=== PATIENT | female | born 1955 | race Caucasian/White ===

== ENCOUNTER 2017-04-10 14:50 | Emergency (ER) | payer OTHER ==
[2017-04-10 15:36] LABS: #Basophils 0.1 thou/uL (0.0-0.2); #Eosinphils 0.2 thou/uL (0.0-0.7); #Lymphocytes 2.7 thou/uL (1.20-3.40); #Monocytes 0.7 thou/uL (0.11-0.59); #Neutrophils 5.7 thou/uL (1.40-6.50); %Basophils 0.6 % (0.0-1.0); %Eosinophils 1.8 % (0.0-10.0); %Lymphocytes 28.6 % (21.0-51.0); %Monocytes 7.4 % (0.0-10.0); Hematocrit 48.7 % (36.0-47.0); Mean Platelet Volume 6.2 fL (7.4-10.4); White Blood Cell (WBC) Count 9.3 thou/uL (4.8-10.8)
[2017-04-10 15:51] LABS: ALT (SGPT) 19 U/L (8-55); AST (SGOT) 17 U/L (5-34); Alkaline Phosphatase 84 U/L (40-150); Anion Gap 14 mmol/L (10-20); BUN (Urea Nitrogen) 18 mg/dL (9.8-20.1); Bilirubin, Total 0.4 mg/dL (0.2-1.2); CK (CPK) 45 U/L (29-168); Calc. Creatinine Clearance 0 mL/min (70-130); Calcium 9.2 mg/dL (7.8-10.44); Carbon Dioxide 25 mmol/L (23-31); Chloride 103 mmol/L (98-107); Estimated GFR-MDRD 77; Globulin 3.4 g/dL (2.4-3.5); Lipase Less than 4 U/L (8-78); Protein, Total 7.4 g/dL (6.0-8.3)
--- NOTE | 2017-04-10 15:51 | RAD ---
CHEST ONE VIEW: 04/10/17 HISTORY: Chest pain. COMPARISON: 02/03/17. FINDINGS: The cardiac silhouette is magnified by projection. Pulmonary vasculature is unremarkable. mediastinu m is midline with postoperative changes apparent. There is no confluent air space consolidation or evidence of pneumothorax. IMPRESSION: No active cardiopulmonary abnormalities are demonstrated. POS: [facility]
[2017-04-10 16:01] LABS: Troponin I Less than 0.010 ng/mL (< 0.028)
[2017-04-10] MEDS ORDERED: traMADol HCl 50 MG TAB ONE (17:09)
[2017-04-10 19:04] LABS: Troponin I 0.014 ng/mL (< 0.028)
== END 2017-04-10 19:35 | disposition home or self-care (01) ==
LOC: ERS 14:50
DX: R07.2 Precordial pain (principal); M25.511 Pain in right shoulder; J44.9 Chronic obstructive pulmonary disease, unspecified; I25.2 Old myocardial infarction; E78.5 Hyperlipidemia, unspecified; I10 Essential (primary) hypertension; E03.9 Hypothyroidism, unspecified; F32.9 Major depressive disorder, single episode, unspecified; F17.210 Nicotine dependence, cigarettes, uncomplicated; Z79.82 Long term (current) use of aspirin; Z79.899 Other long term (current) drug therapy
CPT/HCPCS: 36415; 71010; 80053; 82550; 82553; 83690; 83880; 84484; 85025; 93005

== ENCOUNTER 2017-04-12 11:37 | Outpatient (CLI) | payer OTHER ==
[2017-04-12 13:28] LABS: PTT 26.6 SEC (22.9-36.1); Prothrombin Time 12.4 SEC (12.0-14.7)
== END 2017-04-12 11:38 | disposition home or self-care (01) ==
LOC: LABBT 11:37
PROVIDERS: ATTEND Internal Medicine
DX: Z01.818 Encounter for other preprocedural examination (principal); R93.1 Abnormal findings on diagnostic imaging of heart and coronary circulation
CPT/HCPCS: 80061; 85610; 85730

== ENCOUNTER → 2017-04-13 | Day surgery (SDC) | payer OTHER ==
[2017-04-12 12:12] VITALS: BMI 31.8
[~2017-04-13] MED LIST: Diazepam 5 MG TAB ONE; Fentanyl 100 MCG/2 ML VIAL ONE; Iopamidol 370 76% 100 ML VIAL ONE; Metoprolol Tartrate 5 MG/5 ML VIAL ONE; Midazolam HCl 2 mg/2 ml Vial ONE; diphenhydrAMINE HCl 25 MG CAP ONE
== END ==
LOC: CCL 06:07
PROVIDERS: ATTEND Internal Medicine
DX: I25.10 Atherosclerotic heart disease of native coronary artery without angina pectoris (principal); I10 Essential (primary) hypertension; E78.5 Hyperlipidemia, unspecified; E11.9 Type 2 diabetes mellitus without complications; M19.90 Unspecified osteoarthritis, unspecified site; F17.200 Nicotine dependence, unspecified, uncomplicated; Z88.5 Allergy status to narcotic agent; Z88.6 Allergy status to analgesic agent; Z79.899 Other long term (current) drug therapy; Z95.1 Presence of aortocoronary bypass graft; Z98.890 Other specified postprocedural states; Z86.73 Personal history of transient ischemic attack (TIA), and cerebral infarction without residual deficits
CPT/HCPCS: 93459; 99152; C1760; C1769; J1644; J2250; J3010

== ENCOUNTER 2017-07-18 15:13 | Observation (INO) | payer OTHER ==
[2017-07-18] MEDS ORDERED: Ondansetron HCl/PF 4 MG/2 ML Vial ONE ×2 (16:24→19:21)
[2017-07-18 16:47] LABS: #Basophils 0.1 thou/uL (0.0-0.2); #Eosinphils 0.1 thou/uL (0.0-0.7); #Lymphocytes 2.3 thou/uL (1.20-3.40); #Monocytes 0.7 thou/uL (0.11-0.59); #Neutrophils 10.3 thou/uL (1.40-6.50); %Basophils 0.6 % (0.0-1.0); %Eosinophils 1.1 % (0.0-10.0); %Lymphocytes 16.9 % (21.0-51.0); %Monocytes 5.4 % (0.0-10.0); Mean Corpuscular Hemoglobin 31.9 pg (27.0-31.0); Mean Corpuscular Volume 96.9 fl (81.0-99.0); Platelet Count 330 thou/uL (130-400); RBC Distribution Width 12.5 % (11.5-14.5); Red Blood Cell (RBC) Count 4.71 mill/uL (4.20-5.40); White Blood Cell (WBC) Count 13.6 thou/uL (4.8-10.8)
[2017-07-18 17:08] LABS: ALT (SGPT) 25 U/L (8-55); AST (SGOT) 21 U/L (5-34); Alkaline Phosphatase 89 U/L (40-150); Anion Gap 13 mmol/L (10-20); BUN (Urea Nitrogen) 15 mg/dL (9.8-20.1); Bilirubin, Total 0.4 mg/dL (0.2-1.2); Calc. Creatinine Clearance 0 mL/min (70-130); Calcium 9.3 mg/dL (7.8-10.44); Carbon Dioxide 29 mmol/L (23-31); Chloride 101 mmol/L (98-107); Estimated GFR-MDRD 72; Globulin 3.1 g/dL (2.4-3.5); Glucose 102 mg/dL (80-115); Potassium 4.6 mmol/L (3.5-5.1); Protein, Total 7.1 g/dL (6.0-8.3); Sodium 138 mmol/L (136-145)
--- NOTE | 2017-07-18 18:11 | RAD ---
CHEST TWO VIEWS: History: Cough. Comparison: Chest one view, 04-10-17 FINDINGS: Lungs are clear. No pneumothorax or effusion. Cardiac silhouette and mediastinal contours are within normal limits. Focal area of scar in the right lung base. IMPRESSION: No acute intrathoracic abnormality. POS: [facility]
[2017-07-18] MEDS ORDERED: Fentanyl 100 MCG/2 ML VIAL ONE (18:20)
[2017-07-18] MEDS ORDERED: Oseltamivir 75 MG CAP PO SCH (18:30)
[2017-07-18] MEDS ORDERED: Azithromycin 500 MG in Sodium Chloride 0.9% 250 ML 250 ML IVPB SCH (18:45)
[2017-07-18 19:44] LABS: Bilirubin Negative (Negative); Blood, Urine Negative (Negative); Clarity CLEAR (Clear); Glucose, Urine (Dipstick) Negative (Negative); Leukocyte Negative (Negative); Nitrite Negative (Negative); Protein, Urine (Dipstick) Negative (Neg-Trace); Specific Gravity, Urine 1.013 (1.002-1.036); Urobilinogen 0.2 mg/dL (0.2-1.0); pH, Urine 6.5 (5.0-9.0)
[2017-07-18] MEDS ORDERED: Ondansetron ODT 4 MG TAB SL PRN (20:31)
[2017-07-18] MEDS ORDERED: Acetaminophen 325 MG TAB PO PRN ×2 (20:31→21:23)
[2017-07-18] MEDS ORDERED: Ondansetron HCl/PF 4 MG/2 ML Vial IVP PRN (20:31)
[2017-07-18 20:32] VITALS: BMI 33.8
[2017-07-18] MEDS ORDERED: Sodium Chloride 0.9% 1,000 ML IV SCH (21:30)
[2017-07-18] MEDS ORDERED: Ipratropium Bromide 2.5 ml Neb NEB PRN (21:31)
[2017-07-18] MEDS ORDERED: HYDROcodone/Acetaminophen 10/325 mg Tablet PO PRN (21:42)
[2017-07-18] MEDS ORDERED: Mirtazapine 30 MG TAB PO PRN (21:42)
[2017-07-18 22:25] LABS: Lactic Acid 2.7 mmol/L (0.5-2.2)
[2017-07-18] MEDS ORDERED: Gabapentin 400 MG CAP PO SCH (22:45)
[2017-07-18] MEDS ORDERED: Clopidogrel Bisulfate 75 MG TAB PO SCH (22:45)
[2017-07-18] MEDS ORDERED: DULoxetine 30 MG CAP PO SCH (22:45)
[2017-07-18] MEDS ORDERED: traZODone HCl 150 MG TAB PO SCH (22:45)
[2017-07-18] MEDS ORDERED: Simvastatin 40 MG TAB PO SCH (22:45)
[2017-07-18] MEDS ORDERED: Losartan 25 MG TAB PO SCH (22:45)
[2017-07-18] MEDS ORDERED: hydrALAZINE 10 MG TAB PO SCH (22:45)
[2017-07-18] MEDS ORDERED: ALPRAZolam 1 MG TAB PO SCH (22:45)
[2017-07-18] MEDS ORDERED: Amlodipine 5 MG TAB PO SCH (22:45)
[2017-07-18] MEDS: Albuterol Sulfate 1.25 MG/3 ML NEB NEB SCH (22:55)
[2017-07-19] MEDS: Levothyroxine Sodium 25 MCG TAB PO SCH (04:06)
[2017-07-19 04:29] LABS: #Basophils 0.1 thou/uL (0.0-0.2); #Eosinphils 0.2 thou/uL (0.0-0.7); #Lymphocytes 1.7 thou/uL (1.20-3.40); #Monocytes 0.6 thou/uL (0.11-0.59); #Neutrophils 5.2 thou/uL (1.40-6.50); %Basophils 0.7 % (0.0-1.0); %Eosinophils 2.3 % (0.0-10.0); %Lymphocytes 21.6 % (21.0-51.0); %Monocytes 7.9 % (0.0-10.0); %Neutrophils 67.5 % (42.0-75.0); Mean Corpuscular HGB CONC 32.3 g/dL (32.0-36.0); Mean Corpuscular Hemoglobin 31.7 pg (27.0-31.0); Mean Corpuscular Volume 98.1 fl (81.0-99.0); Mean Platelet Volume 6.2 fL (7.4-10.4); Platelet Count 258 thou/uL (130-400); RBC Distribution Width 12.4 % (11.5-14.5); White Blood Cell (WBC) Count 7.8 thou/uL (4.8-10.8)
[2017-07-19 04:40] LABS: Anion Gap 10 mmol/L (10-20); BUN (Urea Nitrogen) 10 mg/dL (9.8-20.1); Calc. Creatinine Clearance 95 mL/min (70-130); Carbon Dioxide 26 mmol/L (23-31); Chloride 108 mmol/L (98-107); Estimated GFR-MDRD 80; Glucose 97 mg/dL (80-115); Potassium 4.3 mmol/L (3.5-5.1); Sodium 140 mmol/L (136-145)
--- NOTE | 2017-07-19 06:23 | HP ---
CHIEF COMPLAINT: Flu-like symptoms for the last 10 days, fever for last 2 days. HISTORY OF PRESENT ILLNESS: She is a 62-year-old woman with history of COPD, has been feeling sick f or 2 days. Had finished a course of antibiotics and flu medicine 2 days ago and started feeling agai n feverish, nausea, vomiting, chills, night sweats, and cough. She came to the ER with chest tightne ss with cough, all the symptoms and she was hypoxic in the ER room air less than 90s, so she put was at the hospice with COPD with acute exacerbation, flu test came back negative. In the ER, vital sign s were pulse 83, blood pressure 124/65, respirations 18, temperature 99.7 and then she got nebulizer treatment x3, but her wheezing was persistent, so plan is to put in the hospital. PAST MEDICAL HISTORY: As mentioned, history of CAD, hyperlipidemia, high cholesterol, hypertension, stomach cancer, chemotherapy from 1995, knee surgery, cholecystectomy, bypass. PSYCHIATRIC HISTORY: Depression. SOCIAL HISTORY: Drinks socially every week. Currently use drugs, marijuana smoke one pack a day. FAMILY HISTORY: Noncontributory. ALLERGIES: She is allergic to CODEINE, MORPHINE causes nausea and itching and NSAIDs. CURRENT MEDICATIONS: She is taking losartan 100 mg every day, amlodipine 5 mg every day, gabapentin 800 mg every day, levothyroxine 25 daily, simvastatin 40 mg daily, trazodone 50 mg daily, Xanax 1 mg daily, aspirin 81 every day, Plavix 75 mg every day, hydralazine 10 mg. REVIEW OF SYSTEMS: Constitutional: Positive for fever. Eyes: No itching, no blurry vision. ENT: . Cardiovascular: No chest pain, no PND, or orthopnea. Respiratory: Positive for cough. Ga strointestinal: Reports nausea and vomiting. No belly, no abdominal pain. Genitourinary: Female. No hesitancy or urgency. Musculoskeletal: Myalgia. Skin: No rash. Neurological: No dizziness, no headache. Endocrine: No polydipsia. PHYSICAL EXAMINATION: GENERAL: When I examined her, she is a middle-aged woman lying in the bed, not in distress. VITAL SIGNS: Pulse 75, blood pressure 108/52, respiration rate 18, temperature 98.4, saturation 95 o n room 2 liters oxygen. HEENT: Head is atraumatic, normocephalic. Pupils are round and reactive. Extraocular muscles are i ntact. Ear, nose, and throat are normal. Tongue, mucosa dry. NECK: Supple. No JVD, no thyromegaly, no carotid bruit. Trachea midline. CHEST: Diminished breath sounds with occasional wheezing, rhonchi present. CARDIOVASCULAR: S1, S2 audible. No S3, S4. No murmur. ABDOMEN: Soft. Bowel sounds audible. No organomegaly, no guarding or rigidity. EXTREMITIES: No pedal edema. No cyanosis or clubbing. TEST [employer]MENT: Alert x3. NEUROLOGIC: No focal deficits. Cranial nerves II through XII normal. SKIN: Normal turgor. PSYCHIATRIC: Normal affect. EKG shows sinus rhythm at 75 with no ectopics, no ST or T changes. MEDICATIONS: The medicine given in the ER are Tamiflu, Zofran, Rocephin 1 gram and DuoNeb nebulizer. LABORATORY AND DIAGNOSTIC DATA: WBC 20.6, hemoglobin 15.0, hematocrit 45.6, MCV 96.9, platelets are 330. Chemistry: Sodium 138, potassium 4.6, chloride 101, carbon dioxide 29, BUN 50, creatinine 0.8, glucose 102, lactate 2.4, calcium 9.3, AST 21, ALT 25, alkaline phosphatase 89, albumin is 4, albumi n/globulin 3.1. Lipase 4. Urine shows negative. Her chest x-ray shows no acute intrathoracic abnor mality. ASSESSMENT AND PLAN: 1. Chronic obstructive pulmonary disease exacerbation with acute on chronic obstructive pulmonary di sease. Continue oxygen, DuoNeb nebulizer, IV Rocephin, Zithromax empirically. 2. History of coronary artery disease, status post bypass. Continue aspirin and Plavix. 3. Hypertension. Continue amlodipine, losartan, and hydralazine. 4. Tobacco abuse. Continue quinapril 40 mg daily. 5. Deep vein thrombosis. Lovenox.
[2017-07-19] MEDS: Albuterol Sulfate 1.25 MG/3 ML NEB NEB SCH ×3 (06:34→22:09)
[2017-07-19] MEDS: DULoxetine 30 MG CAP PO SCH ×2 (08:24→21:05)
[2017-07-19] MEDS: Gabapentin 400 MG CAP PO SCH ×3 (08:24→21:05)
[2017-07-19] MEDS: Amlodipine 5 MG TAB PO SCH ×2 (08:24→21:04)
[2017-07-19] MEDS: Azithromycin 250 MG TAB PO SCH (08:25)
[2017-07-19] MEDS: Enoxaparin Sodium 40 MG/0.4 ML SYRINGE SC SCH (08:25)
[2017-07-19] MEDS: hydrALAZINE 10 MG TAB PO SCH ×3 (08:25→21:05)
[2017-07-19] MEDS: ALPRAZolam 1 MG TAB PO SCH ×2 (08:25→21:04)
[2017-07-19] MEDS: Nicotine 14 MG PATCH TD SCH (08:36)
[2017-07-19] MEDS ORDERED: cloNIDine 0.1 MG TAB PO PRN (10:16)
[2017-07-19] MEDS ORDERED: Senokot 8.6 MG TAB PO PRN (10:16)
[2017-07-19] MEDS ORDERED: Loratadine 10 MG TAB PO PRN (10:16)
[2017-07-19] MEDS ORDERED: Ondansetron HCl/PF 4 MG/2 ML Vial IVP PRN (10:16)
[2017-07-19] MEDS ORDERED: Benzonatate 100 MG CAP PO PRN (10:16)
[2017-07-19] MEDS ORDERED: Sodium Chloride 0.65% Nasal 44 ML BOT EA NARE PRN (10:16)
[2017-07-19] MEDS ORDERED: Ondansetron ODT 4 MG TAB PO PRN (10:16)
[2017-07-19] MEDS ORDERED: Diabetic Tussin 200 MG/10 ML UDCUP PO PRN (10:16)
[2017-07-19] MEDS ORDERED: Milk Of Magnesia 30 ML UDCUP PO PRN (10:16)
[2017-07-19] MEDS ORDERED: Temazepam 15 MG CAP PO PRN (10:16)
[2017-07-19] MEDS ORDERED: Eucerin (Mineral Oil/Petrolatum,White) 30 gm Jar TOP PRN (10:16)
[2017-07-19] MEDS ORDERED: hydrALAZINE 20 MG/ML VIAL SLOW IVP PRN (10:16)
[2017-07-19] MEDS ORDERED: Artificial Tears 18 DROP/0.9 ML EA EYE PRN (10:16)
[2017-07-19] MEDS ORDERED: Chloraseptic Spray 180 ml Bottle PO PRN (10:16)
[2017-07-19] MEDS ORDERED: Loperamide HCl 2 MG CAP PO PRN (10:16)
[2017-07-19] MEDS ORDERED: Mag-Al 1200 mg/1200 mg/30 ML UDCUP PO PRN (10:16)
--- NOTE | 2017-07-19 10:49 | PDOC.PN ---
- Subjective Encounter Start Date: 07/19/17 Encounter Start Time: 07:40 -: old records requested/rev Patient seen and examined. No new complaints. No overnight events doing well - Objective Resuscitation Status: Resuscitation Status FULL:Full Resuscitation MAR Reviewed: Yes Vital Signs & Weight: Vital Signs (12 hours) Temp Pulse Resp BP BP Pulse Ox 07/19/17 08:24 98.7 F 87 18 07/19/17 07:38 98.7 F 87 18 156/64 H 93 L 07/19/17 06:07 78 16 98 07/19/17 03:59 98.2 F 80 20 123/55 L 92 L 07/19/17 02:06 108/52 L 07/19/17 01:00 96/50 L 07/19/17 00:34 97.9 F 78 18 07/18/17 23:03 94 L 07/18/17 22:55 78 18 94 L I&O: 07/18/17 07/19/17 07/20/17 06:59 06:59 06:59 Intake Total 480 400 Output Total 550 900 Balance -70 -500 Result Diagrams: 07/19/17 04:00 07/19/17 04:00 Radiology Reviewed by me: Yes EKG Reviewed by me: Yes Phys Exam - Physical Examination Constitutional: NAD HEENT: PERRLA, moist MMs, sclera anicteric Neck: no JVD, supple Respiratory: no wheezing, no rhonchi tight, reduced air entry Cardiovascular: RRR, no significant murmur, no rub Gastrointestinal: soft, non-tender, no distention, positive bowel sounds Musculoskeletal: no edema, pulses present Neurological: non-focal, normal sensation Psychiatric: normal affect, A&O x 3 Skin: no rash, normal turgor Dx/Plan (1) COPD exacerbation Code(s): J44.1 - CHRONIC OBSTRUCTIVE PULMONARY DISEASE W (ACUTE) EXACERBATION Status: Acute (2) Lactic acidosis Code(s): E87.2 - ACIDOSIS Status: Acute (3) Anxiety and depression Code(s): F41.8 - OTHER SPECIFIED ANXIETY DISORDERS Status: Chronic (4) CAD (coronary artery disease) Code(s): I25.10 - ATHSCL HEART DISEASE OF [place] CORONARY ARTERY W/O ANG PCTRS Status: Chronic (5) Dyslipidemia Code(s): E78.5 - HYPERLIPIDEMIA, UNSPECIFIED Status: Chronic (6) GERD (gastroesophageal reflux disease) Code(s): K21.9 - GASTRO-ESOPHAGEAL REFLUX DISEASE WITHOUT ESOPHAGITIS Status: Chronic (7) Hypertension Code(s): I10 - ESSENTIAL (PRIMARY) HYPERTENSION Status: Chronic (8) Hypothyroidism Code(s): E03.9 - HYPOTHYROIDISM, UNSPECIFIED Status: Chronic (9) Obesity (BMI 30.0-34.9) Code(s): E66.9 - OBESITY, UNSPECIFIED Status: Chronic - Plan cont current plan of care, continue antibiotics, respiratory therapy * continue azithromycin * continue duoneb * add dulera * dc IVF * selected home meds. * expecting dc tomorrow * medication reviewed as below * symptomatic treatment * will adjust BP meds Review of Systems - Review of Systems Constitutional: negative: fever, chills, sweats, weakness, malaise, other ENT: negative: Ear Pain, Ear Discharge, Nose Pain, Nose Discharge, Nose Congestion, Mouth Pain, Mouth Swelling, Throat Pain, Throat Swelling, Other Respiratory: Cough, Shortness of Breath. negative: Dry, Hemoptysis, SOB with Excertion, Pleuritic Pain, Sputum, Wheezing Cardiovascular: negative: chest pain, palpitations, orthopnea, paroxysmal nocturnal dyspnea, edema, light headedness, other Gastrointestinal: negative: Nausea, Vomiting, Abdominal Pain, Diarrhea, Constipation, Melena, Hematochezia, Other Genitourinary: negative: Dysuria, Frequency, Incontinence, Hematuria, Retention , Other Musculoskeletal: negative: Neck Pain, Shoulder Pain, Arm Pain, Back Pain, Hand Pain, Leg Pain, Foot Pain, Other Skin: negative: Rash, Lesions, Eduar, Bruising, Other Neurological: negative: Weakness, Numbness, Incoordination, Change in Speech, Confusion, Seizures, Other - Medications/Allergies Allergies/Adverse Reactions: Allergies Allergy/AdvReac Type Severity Reaction Status Date / Time codeine Allergy Intermediate ITCHING, Verified 04/12/17 12:10 morphine Allergy Intermediate HOT, Verified 04/12/17 12:10 NAUSEA, ITCHING ketorolac [From Toradol] Allergy Verified 04/12/17 12:10 NSAIDS (Non-Steroidal Allergy Verified 04/12/17 12:10 Anti-Inflamma Medications: Current Medications Acetaminophen (Tylenol) 650 mg PO Q4H PRN PRN Reason: Headache/Fever or Pain Hydrocodone Bitart/Acetaminophen ([place] 7.5/325) 1 tab PO Q4H PRN PRN Reason: Moderate Pain (4-6) Hydrocodone Bitart/Acetaminophen ([place] 10/325) 1 tab PO Q8H PRN PRN Reason: Severe Pain (7-10) Last Admin: 07/19/17 08:24 Dose: 1 tab Al Hydroxide/Mg Hydroxide (Maalox) 15 ml PO Q4H PRN PRN Reason: Heartburn or Indigestion Albuterol Sulfate (Albuterol Sulfate) 1.25 mg NEB [id number] [facility] Last Admin: 07/19/17 06:34 Dose: Not Given Alprazolam (Xanax) 1 mg PO BID [facility] Last Admin: 07/19/17 08:25 Dose: 1 mg Amlodipine Besylate (Norvasc) 5 mg PO BID [facility] Last Admin: 07/19/17 08:24 Dose: 5 mg Artificial Tears (Tears Naturale) 0 drop EA EYE PRN PRN PRN Reason: Dry Eyes Azithromycin (Zithromax) 250 mg PO DAILY [facility] Stop: 07/22/17 09:01 Last Admin: 07/19/17 08:25 Dose: 250 mg Benzonatate (Tessalon) 100 mg PO Q4H PRN PRN Reason: Cough Clonidine (Catapres) 0.1 mg PO Q4H PRN PRN Reason: Systolic BP > 180 Clopidogrel Bisulfate (Plavix) 75 mg PO HS [facility] Duloxetine HCl (Cymbalta) 30 mg PO BID [facility] Last Admin: 07/19/17 08:24 Dose: 30 mg Enoxaparin Sodium (Lovenox) 40 mg SC 0900 [facility] Last Admin: 07/19/17 08:25 Dose: 40 mg Famotidine (Pepcid) 20 mg PO BID [facility] Gabapentin (Neurontin) 800 mg PO TID [facility] Last Admin: 07/19/17 08:24 Dose: 800 mg Guaifenesin (Robitussin Sf) 200 mg PO Q4H PRN PRN Reason: Cough Hydralazine HCl (Apresoline) 10 mg PO TID [facility] Last Admin: 07/19/17 08:25 Dose: 10 mg Hydralazine HCl (Apresoline) 10 mg SLOW IVP Q4H PRN PRN Reason: Systolic BP > 180 Ceftriaxone Sodium 1 gm/ (Syringe) 10 mls @ 120 mls/hr SLOW IVP Q24HR@1800 [facility] Ipratropium [place] (Atrovent) 2.5 ml NEB [id number] PRN PRN Reason: SOB &/or Wheezing Levothyroxine Sodium (Synthroid) 25 mcg PO 0600 [facility] Last Admin: 07/19/17 04:06 Dose: 25 mcg Loperamide HCl (Imodium) 2 mg PO PRN PRN PRN Reason: Diarrhea/Loose Stools Loratadine (Claritin) 10 mg PO DAILYPRN PRN PRN Reason: Sinus Symptoms Losartan Potassium (Cozaar) 100 mg PO HS [facility] Magnesium Hydroxide (Milk Of Magnesium) 30 ml PO DAILYPRN PRN PRN Reason: Constipation Mineral Oil/White Petrolatum (Eucerin Cream) 0 gm TOP BIDPRN PRN PRN Reason: Dry Skin Mirtazapine (Remeron) 15 mg PO HSPRN PRN PRN Reason: Insomnia Mometasone Furoate/Formoterol Fumar (Dulera 200 Mcg/5 Mcg Inhaler) 1 puff INH BID-RT [facility] Nicotine (Nicoderm Patch) 14 mg TD Q24HR [facility] Stop: 07/21/17 09:01 Last Admin: 07/19/17 08:36 Dose: 14 mg Ondansetron HCl (Zofran Odt) 4 mg PO Q6H PRN PRN Reason: Nausea/Vomiting Ondansetron HCl (Zofran) 4 mg IVP Q6H PRN PRN Reason: Nausea/Vomiting Pantoprazole Sodium (Protonix) 40 mg PO DAILY [facility] Last Admin: 07/19/17 08:24 Dose: 40 mg Phenol (Chloraseptic [place] 180 Ml Bot) 0 ml PO PRN PRN PRN Reason: Sore Throat Senna (Senokot) 2 tab PO HSPRN PRN PRN Reason: Constipation Simvastatin (Zocor) 40 mg PO HS [facility] Sodium Chloride (Flush - Normal Saline) 10 ml IVF Q12HR [facility] Last Admin: 07/19/17 08:25 Dose: Not Given Sodium Chloride (Flush - Normal Saline) 10 ml IVF PRN PRN PRN Reason: Saline Flush Sodium Chloride ([place] Nasal [place] 0.65%) 0 ml EA NARE QIDPRN PRN PRN Reason: Nasal Congestion Temazepam (Restoril) 15 mg PO HSPRN PRN PRN Reason: Insomnia Trazodone HCl (Desyrel) 150 mg PO HS [facility]
[2017-07-19 11:51] LABS: Lactic Acid 1.7 mmol/L (0.5-2.2)
[2017-07-19] MEDS: HYDROcodone/Acetaminophen 7.5/325 mg Tablet PO PRN ×2 (14:10→18:33)
[2017-07-19] MEDS ORDERED: cefTRIAXone\\ROCEPHIN 1 GM in Syringe 10 ML SLOW IVP SCH (18:00)
[2017-07-19] MEDS: Mometasone/Formoterol 120 PUFF INHALER INH SCH (18:50)
[2017-07-19] MEDS ORDERED: Simvastatin 40 MG TAB PO SCH (21:00)
[2017-07-19] MEDS ORDERED: Clopidogrel Bisulfate 75 MG TAB PO SCH (21:00)
[2017-07-19] MEDS ORDERED: Losartan 25 MG TAB PO SCH (21:00)
[2017-07-19] MEDS ORDERED: traZODone HCl 150 MG TAB PO SCH (21:00)
[2017-07-19] MEDS: Famotidine 20 MG TAB PO SCH (21:05)
[2017-07-20] MEDS: HYDROcodone/Acetaminophen 7.5/325 mg Tablet PO PRN ×2 (02:01→08:56)
[2017-07-20] MEDS: Levothyroxine Sodium 25 MCG TAB PO SCH (05:19)
[2017-07-20] MEDS: Albuterol Sulfate 1.25 MG/3 ML NEB NEB SCH (07:02)
[2017-07-20] MEDS: Mometasone/Formoterol 120 PUFF INHALER INH SCH (07:11)
[2017-07-20 08:34] VITALS: BP 101/56; TEMP 97.4
[2017-07-20] MEDS: DULoxetine 30 MG CAP PO SCH (08:57)
[2017-07-20] MEDS: Amlodipine 5 MG TAB PO SCH (08:58)
[2017-07-20] MEDS: Azithromycin 250 MG TAB PO SCH (08:58)
[2017-07-20] MEDS: Famotidine 20 MG TAB PO SCH (08:58)
[2017-07-20] MEDS: Gabapentin 400 MG CAP PO SCH (08:58)
[2017-07-20] MEDS: Enoxaparin Sodium 40 MG/0.4 ML SYRINGE SC SCH (08:59)
[2017-07-20] MEDS: ALPRAZolam 1 MG TAB PO SCH (08:59)
[2017-07-20] MEDS: hydrALAZINE 10 MG TAB PO SCH (09:00)
[2017-07-20] MEDS: Nicotine 14 MG PATCH TD SCH (09:00)
--- NOTE | 2017-07-20 09:25 | PDOC.PN ---
- Subjective Encounter Start Date: 07/20/17 Encounter Start Time: 07:30 Patient seen and examined. No new complaints. No overnight events - Objective Resuscitation Status: Resuscitation Status FULL:Full Resuscitation MAR Reviewed: Yes Vital Signs & Weight: Vital Signs (12 hours) Temp Pulse Resp BP BP Pulse Ox 07/20/17 08:23 97.4 F L 66 18 101/56 L 96 07/20/17 07:58 98.0 F 80 12 07/20/17 07:11 80 12 07/20/17 07:05 96 07/20/17 07:02 80 12 07/20/17 05:15 98.0 F 73 18 128/60 94 L 07/20/17 02:02 73 20 133/58 L 94 L Weight Weight 168 lb I&O: 07/19/17 07/20/17 07/21/17 06:59 06:59 06:59 Intake Total 480 1951 Output Total 550 900 Balance -70 1051 Result Diagrams: 07/19/17 04:00 07/19/17 04:00 EKG Reviewed by me: Yes Phys Exam - Physical Examination Constitutional: NAD HEENT: PERRLA, moist MMs, sclera anicteric Neck: no JVD, supple Respiratory: no wheezing, no rales, no rhonchi Cardiovascular: RRR, no significant murmur, no rub Gastrointestinal: soft, non-tender, no distention, positive bowel sounds Musculoskeletal: no edema, pulses present Neurological: non-focal, normal sensation, moves all 4 limbs Psychiatric: normal affect, A&O x 3 Skin: no rash, normal turgor Dx/Plan (1) COPD exacerbation Code(s): J44.1 - CHRONIC OBSTRUCTIVE PULMONARY DISEASE W (ACUTE) EXACERBATION Status: Acute (2) Lactic acidosis Code(s): E87.2 - ACIDOSIS Status: Resolved (3) Anxiety and depression Code(s): F41.8 - OTHER SPECIFIED ANXIETY DISORDERS Status: Chronic (4) CAD (coronary artery disease) Code(s): I25.10 - ATHSCL HEART DISEASE OF [place] CORONARY ARTERY W/O ANG PCTRS Status: Chronic (5) Dyslipidemia Code(s): E78.5 - HYPERLIPIDEMIA, UNSPECIFIED Status: Chronic (6) GERD (gastroesophageal reflux disease) Code(s): K21.9 - GASTRO-ESOPHAGEAL REFLUX DISEASE WITHOUT ESOPHAGITIS Status: Chronic (7) Hypertension Code(s): I10 - ESSENTIAL (PRIMARY) HYPERTENSION Status: Chronic (8) Hypothyroidism Code(s): E03.9 - HYPOTHYROIDISM, UNSPECIFIED Status: Chronic (9) Obesity (BMI 30.0-34.9) Code(s): E66.9 - OBESITY, UNSPECIFIED Status: Chronic - Plan cont current plan of care, continue antibiotics, respiratory therapy * azithromycin, proair HFA, atrovent HFA, dulera HFA on discharge * flonase nasal spray * medication reviewed as below * symptomatic treatment. * see discharge beryly Review of Systems - Review of Systems ENT: negative: Ear Pain, Ear Discharge, Nose Pain, Nose Discharge, Nose Congestion, Mouth Pain, Mouth Swelling, Throat Pain, Throat Swelling, Other Respiratory: negative: Cough, Dry, Shortness of Breath, Hemoptysis, SOB with Excertion, Pleuritic Pain, Sputum, Wheezing Cardiovascular: negative: chest pain, palpitations, orthopnea, paroxysmal nocturnal dyspnea, edema, light headedness, other Gastrointestinal: negative: Nausea, Vomiting, Abdominal Pain, Diarrhea, Constipation, Melena, Hematochezia, Other Genitourinary: negative: Dysuria, Frequency, Incontinence, Hematuria, Retention , Other Musculoskeletal: negative: Neck Pain, Shoulder Pain, Arm Pain, Back Pain, Hand Pain, Leg Pain, Foot Pain, Other Skin: negative: Rash, Lesions, Eduar, Bruising, Other - Medications/Allergies Allergies/Adverse Reactions: Allergies Allergy/AdvReac Type Severity Reaction Status Date / Time codeine Allergy Intermediate ITCHING, Verified 04/12/17 12:10 morphine Allergy Intermediate HOT, Verified 04/12/17 12:10 NAUSEA, ITCHING ketorolac [From Toradol] Allergy Verified 04/12/17 12:10 NSAIDS (Non-Steroidal Allergy Verified 04/12/17 12:10 Anti-Inflamma Medications: Current Medications Acetaminophen (Tylenol) 650 mg PO Q4H PRN PRN Reason: Headache/Fever or Pain Hydrocodone Bitart/Acetaminophen ([place] 7.5/325) 1 tab PO Q4H PRN PRN Reason: Moderate Pain (4-6) Last Admin: 07/20/17 08:56 Dose: 1 tab Hydrocodone Bitart/Acetaminophen ([place] 10/325) 1 tab PO Q8H PRN PRN Reason: Severe Pain (7-10) Last Admin: 07/19/17 08:24 Dose: 1 tab Al Hydroxide/Mg Hydroxide (Maalox) 15 ml PO Q4H PRN PRN Reason: Heartburn or Indigestion Albuterol Sulfate (Albuterol Sulfate) 1.25 mg NEB Q0PK-AD [facility] Last Admin: 07/20/17 07:02 Dose: 1.25 mg Alprazolam (Xanax) 1 mg PO BID [facility] Last Admin: 07/20/17 08:59 Dose: 1 mg Amlodipine Besylate (Norvasc) 5 mg PO BID [facility] Last Admin: 07/20/17 08:58 Dose: Not Given Artificial Tears (Tears Naturale) 0 drop EA EYE PRN PRN PRN Reason: Dry Eyes Azithromycin (Zithromax) 250 mg PO DAILY [facility] Stop: 07/22/17 09:01 Last Admin: 07/20/17 08:58 Dose: 250 mg Benzonatate (Tessalon) 100 mg PO Q4H PRN PRN Reason: Cough Clonidine (Catapres) 0.1 mg PO Q4H PRN PRN Reason: Systolic BP > 180 Clopidogrel Bisulfate (Plavix) 75 mg PO HS [facility] Last Admin: 07/19/17 21:05 Dose: 75 mg Duloxetine HCl (Cymbalta) 30 mg PO BID [facility] Last Admin: 07/20/17 08:57 Dose: 30 mg Enoxaparin Sodium (Lovenox) 40 mg SC 0900 [facility] Last Admin: 07/20/17 08:59 Dose: 40 mg Famotidine (Pepcid) 20 mg PO BID [facility] Last Admin: 07/20/17 08:58 Dose: 20 mg Gabapentin (Neurontin) 800 mg PO TID [facility] Last Admin: 07/20/17 08:58 Dose: 800 mg Guaifenesin (Robitussin Sf) 200 mg PO Q4H PRN PRN Reason: Cough Hydralazine HCl (Apresoline) 10 mg PO TID [facility] Last Admin: 07/20/17 09:00 Dose: Not Given Hydralazine HCl (Apresoline) 10 mg SLOW IVP Q4H PRN PRN Reason: Systolic BP > 180 Ceftriaxone Sodium 1 gm/ (Syringe) 10 mls @ 120 mls/hr SLOW IVP Q24HR@1800 [facility] Last Admin: 07/19/17 18:32 Dose: 10 mls Ipratropium [place] (Atrovent) 2.5 ml NEB [id number] PRN PRN Reason: SOB &/or Wheezing Levothyroxine Sodium (Synthroid) 25 mcg PO 0600 [facility] Last Admin: 07/20/17 05:19 Dose: 25 mcg Loperamide HCl (Imodium) 2 mg PO PRN PRN PRN Reason: Diarrhea/Loose Stools Loratadine (Claritin) 10 mg PO DAILYPRN PRN PRN Reason: Sinus Symptoms Losartan Potassium (Cozaar) 100 mg PO HS [facility] Last Admin: 07/19/17 21:07 Dose: 100 mg Magnesium Hydroxide (Milk Of Magnesium) 30 ml PO DAILYPRN PRN PRN Reason: Constipation Last Admin: 07/19/17 18:37 Dose: 30 ml Mineral Oil/White Petrolatum (Eucerin Cream) 0 gm TOP BIDPRN PRN PRN Reason: Dry Skin Mirtazapine (Remeron) 15 mg PO HSPRN PRN PRN Reason: Insomnia Mometasone Furoate/Formoterol Fumar (Dulera 200 Mcg/5 Mcg Inhaler) 1 puff INH BID-RT [facility] Last Admin: 07/20/17 07:11 Dose: 1 puff Nicotine (Nicoderm Patch) 14 mg TD Q24HR [facility] Stop: 07/21/17 09:01 Last Admin: 07/20/17 09:00 Dose: Not Given Ondansetron HCl (Zofran Odt) 4 mg PO Q6H PRN PRN Reason: Nausea/Vomiting Last Admin: 07/20/17 08:56 Dose: 4 mg Ondansetron HCl (Zofran) 4 mg IVP Q6H PRN PRN Reason: Nausea/Vomiting Pantoprazole Sodium (Protonix) 40 mg PO DAILY [facility] Last Admin: 07/20/17 08:58 Dose: 40 mg Phenol (Chloraseptic [place] 180 Ml Bot) 0 ml PO PRN PRN PRN Reason: Sore Throat Senna (Senokot) 2 tab PO HSPRN PRN PRN Reason: Constipation Last Admin: 07/20/17 02:02 Dose: 2 tab Simvastatin (Zocor) 40 mg PO [facility] Last Admin: 07/19/17 21:06 Dose: 40 mg Sodium Chloride (Flush - Normal Saline) 10 ml IVF Q12HR [facility] Last Admin: 07/20/17 09:00 Dose: 10 ml Sodium Chloride (Flush - Normal Saline) 10 ml IVF PRN PRN PRN Reason: Saline Flush Sodium Chloride ([place] Nasal [place] 0.65%) 0 ml EA NARE QIDPRN PRN PRN Reason: Nasal Congestion Temazepam (Restoril) 15 mg PO HSPRN PRN PRN Reason: Insomnia Trazodone HCl (Desyrel) 150 mg PO [facility] Last Admin: 07/19/17 21:06 Dose: 150 mg
--- NOTE | 2017-07-20 11:22 | DIS ---
DATE OF ADMISSION: 07/18/2017 DATE OF DISCHARGE: 07/20/2017 PRIMARY CARE PHYSICIAN: Dr. Nicolás Chew. DISCHARGE DISPOSITION: Home. PRIMARY DISCHARGE DIAGNOSES: Chronic obstructive pulmonary disease exacerbation; and lactic acidosis , improved. SECONDARY DISCHARGE DIAGNOSES: Obesity with BMI 33, hypothyroidism, hypertension, gastroesophageal r eflux disease, dyslipidemia, coronary artery disease, anxiety and depression, chronic obstructive pul monary disease. PRIMARY PROCEDURE/OPERATION: None. RADIOLOGICAL INVESTIGATION: Chest x-ray was normal. SIGNIFICANT LABORATORY DATA: WBC 7.8, hemoglobin 13.0, platelets 258. Sodium 140. Lactic acid 1.7, creatinine 0.74. LFTs normal, lipase 4. Urinalysis normal. Influenza screen negative. Urine cult ure negative. DISCHARGE MEDICATIONS: ProAir HFA 2 puffs q.6 hourly p.r.n., Xanax 1 mg p.o. b.i.d., amlodipine 5 mg p.o. b.i.d., azithromycin 250 mg p.o. daily for 5 days, Plavix 75 mg p.o. at bedtime, Cymbalta 30 mg p.o. b.i.d., Flonase nasal spray b.i.d., gabapentin 800 mg p.o. t.i.d., hydralazine 10 mg p.o. t.i.d ., [place] 10 one tablet q.8 hourly p.r.n., Atrovent HFA 2 puffs q.6 hourly, Synthroid 25 mcg p.o. jamie y, Losartan 100 mg p.o. at bedtime, Remeron 15 mg p.o. at bedtime p.r.n., Dulera 1 puff inhalation b. i.d., Protonix 40 mg p.o. daily, Zocor 40 mg p.o. at bedtime, trazodone 150 mg p.o. at bedtime. CONTRAINDICATIONS: None. CODE STATUS: FULL CODE. INPATIENT CONSULTANTS: None. ALLERGIES: CODEINE, MORPHINE, TORADOL, NSAIDS. DISCHARGE PLAN: Post hospital, the patient will follow up with primary care physician in 1 week. HOSPITAL COURSE: The patient is a 62-year-old female with above-mentioned medical problems. She was admitted by Dr. Fernando Quiros. Please see his H and P for further details. The patient was having increasing shortness of breath, nasal congestion, and cough. She was diagnosed with COPD flareup. H er chest x-ray was normal. Her influenza screen was negative. She was treated with DuoNeb, Dulera, and empiric antibiotic therapy with Rocephin and azithromycin. On discharge, we changed to albuterol , Atrovent HFA as well as Dulera inhaler, and Z-Curly was prescribed. The patient will resume all her previous medications. She has allergic rhinitis and that is why we added Flonase nasal spray as well . The patient is on room air. She is afebrile and hemodynamically stable, tolerating p.o. well and amb ulatory. At this point, patient is medically stable for discharge today. The patient is seen and ex amined at bedside today. Please see my progress note from today for further details.
== END 2017-07-20 11:18 | disposition home or self-care (01) ==
LOC: ERS 15:13 → 2SW 20:18
PROVIDERS: ADMIT Family Medicine; ATTEND Family Medicine
DX: J44.1 Chronic obstructive pulmonary disease with (acute) exacerbation (principal); E87.2 Acidosis; E03.9 Hypothyroidism, unspecified; E78.00 Pure hypercholesterolemia, unspecified; E78.5 Hyperlipidemia, unspecified; I10 Essential (primary) hypertension; I25.10 Atherosclerotic heart disease of native coronary artery without angina pectoris; I25.2 Old myocardial infarction; K21.9 Gastro-esophageal reflux disease without esophagitis; F17.210 Nicotine dependence, cigarettes, uncomplicated; F41.8 Other specified anxiety disorders; E66.9 Obesity, unspecified; Z68.33 Body mass index [BMI] 33.0-33.9, adult; Z85.028 Personal history of other malignant neoplasm of stomach; Z92.21 Personal history of antineoplastic chemotherapy; Z85.01 Personal history of malignant neoplasm of esophagus; Z86.73 Personal history of transient ischemic attack (TIA), and cerebral infarction without residual deficits; Z79.82 Long term (current) use of aspirin; Z79.02 Long term (current) use of antithrombotics/antiplatelets; Z79.899 Other long term (current) drug therapy; Z88.5 Allergy status to narcotic agent; Z88.8 Allergy status to other drugs, medicaments and biological substances; Z95.1 Presence of aortocoronary bypass graft; Z90.49 Acquired absence of other specified parts of digestive tract; Z90.3 Acquired absence of stomach [part of]; Z98.890 Other specified postprocedural states
CPT/HCPCS: 36415; 71046; 80048; 80053; 81003; 83605; 83690; 85025; 87086; 93005; 94640; 96361; 96365; 96366; 96372; 96375; 96376; A4216; G0378; J0456; J0696; J1650; J2405; J3010; J3370; J7050; J7620; Q0162

== ENCOUNTER 2017-09-16 19:29 | Observation (INO) | payer OTHER ==
[~2017-09-16 19:29] MED LIST changes: -Diazepam 5 MG TAB ONE; -Fentanyl 100 MCG/2 ML VIAL ONE; +ISOVUE-370 76%-LOCM 1 ML ONE; -Iopamidol 370 76% 100 ML VIAL ONE; -Metoprolol Tartrate 5 MG/5 ML VIAL ONE; -Midazolam HCl 2 mg/2 ml Vial ONE; -diphenhydrAMINE HCl 25 MG CAP ONE
[2017-09-16 20:19] LABS: #Basophils 0.1 thou/uL (0.0-0.2); #Eosinphils 0.2 thou/uL (0.0-0.7); #Lymphocytes 2.2 thou/uL (1.20-3.40); #Monocytes 0.8 thou/uL (0.11-0.59); #Neutrophils 7.1 thou/uL (1.40-6.50); %Basophils 0.7 % (0.0-1.0); %Eosinophils 1.7 % (0.0-10.0); %Lymphocytes 21.3 % (21.0-51.0); %Monocytes 7.3 % (0.0-10.0); %Neutrophils 69.1 % (42.0-75.0); Hemoglobin 14.3 g/dL (12.0-16.0); Mean Corpuscular HGB CONC 32.6 g/dL (32.0-36.0); Mean Corpuscular Hemoglobin 31.9 pg (27.0-31.0); Mean Corpuscular Volume 97.8 fl (81.0-99.0); Mean Platelet Volume 6.6 fL (7.4-10.4); Platelet Count 322 thou/uL (130-400); RBC Distribution Width 12.6 % (11.5-14.5); Red Blood Cell (RBC) Count 4.48 mill/uL (4.20-5.40); White Blood Cell (WBC) Count 10.3 thou/uL (4.8-10.8)
[2017-09-16 20:28] LABS: INR-International Normal Ratio 0.9; Prothrombin Time 12.7 SEC (12.0-14.7)
[2017-09-16 20:34] LABS: ALT (SGPT) 59 U/L (8-55); AST (SGOT) 37 U/L (5-34); Albumin 4.3 g/dL (3.4-4.8); Alkaline Phosphatase 88 U/L (40-150); Anion Gap 13 mmol/L (10-20); BUN (Urea Nitrogen) 17 mg/dL (9.8-20.1); Bilirubin, Total 0.5 mg/dL (0.2-1.2); CK (CPK) 81 U/L (29-168); Calc. Creatinine Clearance 0 mL/min (70-130); Calcium 9.4 mg/dL (7.8-10.44); Carbon Dioxide 27 mmol/L (23-31); Chloride 101 mmol/L (98-107); Estimated GFR-MDRD 67; Globulin 3.1 g/dL (2.4-3.5); Glucose 85 mg/dL (80-115); Lipase 10 U/L (8-78); Potassium 4.3 mmol/L (3.5-5.1); Protein, Total 7.4 g/dL (6.0-8.3); Sodium 137 mmol/L (136-145)
[2017-09-16 20:37] LABS: CKMB 1.8 ng/mL (0-6.6); Troponin I Less than 0.010 ng/mL (< 0.028)
[2017-09-16 20:37] LABS: Bilirubin Negative (Negative); Blood, Urine Negative (Negative); Clarity CLEAR (Clear); Glucose, Urine (Dipstick) Negative (Negative); Leukocyte Negative (Negative); Nitrite Negative (Negative); Protein, Urine (Dipstick) Negative (Neg-Trace); Specific Gravity, Urine 1.006 (1.002-1.036); Urobilinogen 0.2 mg/dL (0.2-1.0); pH, Urine 6.5 (5.0-9.0)
[2017-09-16] MEDS ORDERED: Acetaminophen 500 MG TAB ONE (21:24)
[2017-09-16] MEDS ORDERED: Ondansetron HCl/PF 4 MG/2 ML Vial ONE (21:30)
--- NOTE | 2017-09-16 22:08 | CT ---
CT HEAD WITHOUT CONTRAST: 09/16/17 Multiple axial tomograms obtained through the head without IV enhancement. HISTORY: Confusion. Mental status change. Comparison made to prior head CT dated 02/03/17. There are two areas of low attenuation in the peripheral cortex of the right cerebellum which are sta ble from the prior exam. There is no evidence of intracranial hemorrhage, mass or infarct. No interva l change noted. IMPRESSION: No acute findings. POS: [facility]
--- NOTE | 2017-09-16 23:39 | CT ---
CT ABDOMEN AND PELVIS WITH CONTRAST: 09/16/17 Multiple axial tomograms obtained through the abdomen and pelvis with IV enhancement. HISTORY: Abdominal pain. Nausea. Lung bases appear clear of infiltrate. Liver shows diffuse hypodensity consistent with fatty infiltra tion. Spleen and pancreas unremarkable. Patient is post cholecystectomy. The 1.7 cm left adrenal mass is again seen. this is stable in appearance when compared to exam of 01/02 02/18. The stomach is distended and filled with ingested material. The kidneys are unremarkable. There is no evidence of hydronephrosis. Small bowel loops unremarkable. Aorta shows atherosclerotic change but normal caliber. The uterus and adnexa appear unremarkable. IMPRESSION: 1. Left adrenal mass is stable. 2. Fatty infiltration of the liver is again noted and is similar to the prior exam. 3. No evidence of acute process identified. POS: [facility]
[2017-09-17] MEDS ORDERED: Ondansetron HCl/PF 4 MG/2 ML Vial IVP PRN ×2 (01:23→10:03)
[2017-09-17] MEDS ORDERED: Ondansetron ODT 4 MG TAB SL PRN (01:23)
[2017-09-17] MEDS ORDERED: Acetaminophen 325 MG TAB PO PRN ×2 (01:23→10:03)
[2017-09-17 01:44] VITALS: BMI 32.8
[2017-09-17] MEDS ORDERED: HYDROcodone/Acetaminophen 10/325 mg Tablet PO PRN ×2 (10:03→10:46)
[2017-09-17] MEDS ORDERED: HYDROcodone/Acetaminophen 5/325 mg Tablet PO PRN (10:03)
[2017-09-17] MEDS ORDERED: Ondansetron ODT 4 MG TAB PO PRN (10:03)
[2017-09-17] MEDS ORDERED: Enoxaparin Sodium 40 MG/0.4 ML SYRINGE SC SCH (10:15)
[2017-09-17] MEDS ORDERED: PROVENTIL INHALER 6.7 G (200 INHALATIONS) INH PRN (10:46)
[2017-09-17] MEDS ORDERED: Mirtazapine 15 MG TAB PO PRN (10:46)
[2017-09-17 10:56] LABS: Cardiac Risk 5.2 (Less than 4.5)
[2017-09-17] MEDS ORDERED: DULoxetine 30 MG CAP PO SCH ×2 (11:00→21:00)
[2017-09-17] MEDS ORDERED: Fluticasone Propionate Nasal Spray 16 gm Bottle NASAL SCH (11:00)
[2017-09-17] MEDS ORDERED: Amlodipine 5 MG TAB PO SCH ×2 (11:00→21:00)
[2017-09-17] MEDS: Ipratropium Oral Inhaler (200 INHALATIONS) INH SCH ×3 (12:42→18:29)
[2017-09-17] MEDS: Mometasone/Formoterol 120 PUFF INHALER INH SCH ×2 (12:42→18:27)
--- NOTE | 2017-09-17 13:28 | ULT ---
CAROTID DOPPLER: INDICATIONS: TIA. TECHNIQUE: Ultrasound and Doppler studies performed of the extracranial carotid arteries. Color Doppler with sp ectral analysis and velocity recordings obtained. FINDINGS: Ultrasound imaging shows moderate echogenic plaque at the bulbs and proximal ICAs. Velocity recordings are upper normal in the left proximal ICA. The systolic velocity is recorded at 120 cm per second and the diastolic velocity is recorded at 39 cm per second. Both these velocities indicate stenosis, which is nearing hemodynamic significance. The right ICA velocity is recorded at 106 cm per second, with the diastolic recorded at 34 cm per sec ond. Significant stenosis incidentally noted in both external carotid arteries. Vertebral body arteries show antegrade flow. IMPRESSION: 1. Moderate plaque seen bilaterally. 2. Velocities in the left proximal internal carotid artery are nearing hemodynamic significance, as described above, which would indicate stenosis near 50%. Consider CT angio neck for more accurate as sessment. POS: [facility]
--- NOTE | 2017-09-17 13:49 | CON ---
DATE OF CONSULTATION: 09/17/2017 CHIEF COMPLAINT: Dizziness. HISTORY OF PRESENT ILLNESS: Patient did not report any specific neurological history. I am not sure why, but she herself stated to me that she did not think she was having any stroke-like symptoms and she has had a prior stroke. She felt had a blood spot in her right eye and told her friend and that redness is gone and she has some difficulties with dizziness, swallowing and according to the ER physician's note, she was more confused than usual per her family and she had generalized weakness and no specific stroke-like symptoms were described even in the chart. PAST MEDICAL HISTORY: Patient has had a prior history of CVA, stomach cancer treated with surgery and chemo, facial malignancy and TIAs in the past with swallowing or speech deficits, ruptured low disks in her back, and hypothyroidism. PAST SURGICAL HISTORY: Stomach surgery due to cancer, intestinal surgery due to cancer, appendectomy, coronary artery bypass graft for 3 vessels in 2002, cholecystectomy, right knee surgery and then she also has history of right knee surgery. SOCIAL HISTORY: She uses marijuana, drinks socially and smokes one pack a day. FAMILY HISTORY: Positive for stroke in few members of the family on the paternal side. ALLERGIES: She is allergic to CODEINE, MORPHINE, NSAIDS and TORADOL. MEDICATIONS: She takes losartan at home along with levothyroxine, mirtazapine, simvastatin, Dulera, pantoprazole, gabapentin, trazodone, duloxetine and Xanax. REVIEW OF SYSTEMS: Pulmonary: Normal. Cardiac: Normal. Gastrointestinal: Positive for sensation of bloating and nausea. Dermatologic: Normal. Neurological: Positive for feeling somewhat dizzy, which was transient. Endocrine System: Negative except for thyroid issues. Hematological: Normal. LABORATORY RESULTS: White count 10.3, hemoglobin 14.3, hematocrit 43.9, platelets 322. Chemistry: Sodium 137, potassium 4.3, carbon dioxide 27, chloride 101, BUN 17, creatinine 0.86, AST 37, ALT 59, alkaline phosphatase 88, triglycerides 243, cholesterol 156, LDL 77, HDL 30 and UA is negative. Coagulation normal and her CT of the head was negative except for two areas of low attenuation with peripheral cortex of the right cerebellum, which are stable from prior exam. No evidence of intracranial hemorrhage, mass or infarct and carotid duplex study reports are pending. PHYSICAL EXAMINATION: VITAL SIGNS: Her blood pressure 158/97, temperature is 98.6, O2 sats 92, pulse rate of 90. GENERAL APPEARANCE: Well-built, well-nourished lady. CHEST: Clear, vesicular breathing. CARDIOVASCULAR: S1, S2 heard. ABDOMEN: Slightly overweight, but no organomegaly noted. No tenderness. NEUROLOGICAL: Higher intellectual functions are normal. Cranial nerves II-XII normal with normal extraocular movements. No facial asymmetry noted. Normal strength of facial muscles bilaterally. Normal sensation of face bilaterally. Tongue midline, no atrophy noted. Motor examination: Bulk normal, tone normal , strength 5/5 throughout in upper and lower extremities in iliopsoas, hamstrings, quadriceps, ankle dorsiflexion, plantar flexion, deltoid, biceps, triceps, wrist extension/flexion, finger extension and flexion. Sensory and deep tendon reflexes 2+ throughout in upper and lower extremities and sensory exam, normal touch, pinprick, proprioception, vibration and temperature. Cerebellar: Normal heel to wagner. Gait not tested. IMPRESSION: Patient is a 62-year-old lady with prior history of transient ischemic attacks and cerebrovascular accident and also coronary artery disease and she is also hypertensive and uses marijuana and her examination shows normal neurological examination. Although her symptoms are not consistent with stroke, there is an ER physician note that states that the patient has being a bit confused and reported stroke-like symptoms although there were nonspecific. At this time, her CT is also negative, does not show any specific infarct; however, because of this vague history and unclear of history at presentation, I would like to go ahead and obtain an MRI of the brain. Please continue Plavix once daily for the stroke prophylaxis. She is reported to me she does take her Plavix on a daily basis. RECOMMENDATIONS 1. MRI, MRA brain. 2. I will follow up patient with you. 3. Do not think this is acute CVA. LAVELLED
[2017-09-17] MEDS ORDERED: hydrALAZINE 10 MG TAB PO SCH (15:00)
[2017-09-17] MEDS ORDERED: Gabapentin 400 MG CAP PO SCH (15:00)
--- NOTE | 2017-09-17 15:47 | MRI ---
NONCONTRAST ENHANCED MRI IMAGES BRAIN: HISTORY: A 62-year-old female with a history of acute ischemia versus CVA. FINDINGS: Multiplanar, multisequence noncontrast-enhanced MRI images of brain obtained. Comparison is made to previous exam from 12/14/11. Images demonstrate old areas of stroke in the right vanessa. This has not significantly changed since t he previous comparison MRI. Some deep white matter ischemic changes are present. Numerous areas of subcortical white matter lesions seen, again unchanged and likely chronic. No evidence of areas of d iffusion restriction are seen to suggest acute strokes or masses. Normal flow voids are seen in the major intracranial vessels. The patient has had previous bilateral cataract surgeries. IMPRESSION: Old areas of deep white matter ischemic changes as well as right cerebellar areas of infarction. No acute intracranial abnormalities or significant interval changes seen. POS: [facility]
--- NOTE | 2017-09-17 15:49 | MRI ---
[place] [facility] [place] MRA 09/17/17 HISTORY: TIAs. Noncontrast enhanced vie[place] of [place] MRA is performed. Images demonstrate normal flow seen in the right and left internal carotid arteries in the visualized portions. Normal flow is seen in the right and left MCA and TAMIKO vessels. There is also normal flow s een in the right and left posterior cerebral arteries. They patient has a hypoplastic right vertebral artery. The left vertebral artery is patent. IMPRESSION: No significant evidence of intracranial occlusions. The patient does appear to have a hypoplastic rig ht vertebral artery distally. POS: [facility]
[2017-09-17 16:20] VITALS: BP 139/65; TEMP 98.2
[2017-09-17] MEDS ORDERED: traZODone HCl 150 MG TAB PO SCH (21:00)
[2017-09-17] MEDS ORDERED: Clopidogrel Bisulfate 75 MG TAB PO SCH (21:00)
[2017-09-17] MEDS ORDERED: Losartan 25 MG TAB PO SCH (21:00)
[2017-09-17] MEDS ORDERED: Simvastatin 40 MG TAB PO SCH (21:00)
[2017-09-17] MEDS ORDERED: ALPRAZolam 1 MG TAB PO SCH (21:00)
[2017-09-18] MEDS ORDERED: Levothyroxine Sodium 25 MCG TAB PO SCH (06:00)
[2017-09-18] MEDS ORDERED: Enoxaparin Sodium 40 MG/0.4 ML SYRINGE SC SCH (09:00)
--- NOTE | 2017-09-18 15:58 | HP ---
DATE OF ADMISSION: 09/18/2017 PRIMARY CARE PHYSICIAN: Dr. Nicolás Chew. TIME OF SERVICE: 0900. CHIEF COMPLAINT: Weakness. HISTORY OF PRESENT ILLNESS: Ms. Vasquez is a pleasant 62-year-old white female with history of CVA a nd TIAs in the past, coronary artery disease status post heart attack x2, hyperlipidemia and hyperten loren, and esophageal cancer and stomach cancer in 1995 status post partial gastrectomy and small gricelda l resection. The patient felt 3 days prior to admission that she was kind of disconnected from herself and felt th at she may have had a TIA. She was associating that with a blood spot that appeared in her right eye medially but has since resolved. She went to her primary care doctor for followup of chronic cough, she has had for the last month or so and told him that she felt like she had a TIA, she complains of difficulty swallowing above her baseline she has from her previous strokes and was subsequently sent to the Emergency Department for evaluation. There workup was negative, and based on the history, we were called for further admission. The patient was accepted by the bricklayer tender and hold over for admission for this morning. On my arrival, she is feeling back to baseline. She denies any chest pain or shortness of breath. N o nausea or vomiting. No diarrhea or constipation. No other current complaints. PAST MEDICAL HISTORY: 1. Cerebrovascular disease, status post TIAs and CVA x2. 2. Coronary artery disease with history of TN x2. 3. Hyperlipidemia. 4. Hypertension. 5. Esophageal cancer. 6. Stomach cancer. 7. Lumbar disk disease. PAST SURGICAL HISTORY: 1. Partial gastrectomy with a proximal small bowel resection. 2. Appendectomy remotely. 3. CABG x3 vessels in 2002. 4. Cholecystectomy. 5. Right knee total knee arthroplasty. HOME MEDICATIONS: 1. Losartan 100 mg p.o. daily. 2. Amlodipine 5 mg daily. 3. Mirtazapine 30 mg p.o. at bedtime. 4. Zocor 40 mg p.o. at bedtime. 5. Dulera 200/5 one puff b.i.d. 6. Atrovent HFA q.i.d. 7. Protonix 40 mg daily. 8. Gabapentin 100 mg p.o. t.i.d. 9. Trazodone 150 mg p.o. daily. 10. Duloxetine 30 mg p.o. daily. 11. Xanax 1 mg p.o. b.i.d. 12. Plavix 75 mg daily. ALLERGIES: CODEINE, MORPHINE, NSAIDS and TORADOL. FAMILY HISTORY: Negative for clotting or bleeding disorder. No immune dysfunction. SOCIAL HISTORY: Negative for habits x3. She did smoke at one point, but has not for many years. He r daughter lives nearby and keeps an eye on her medical issues. REVIEW OF SYSTEMS: A 10-point review of systems was performed and is negative for all systems except as stated per HPI. PHYSICAL EXAMINATION: VITAL SIGNS: Temperature 98.0, pulse 80, blood pressure 125/56, respiratory 18, satting at 94% on 2 liters. On presentation in the ER, temperature is 97.9, pulse 92, and blood pressure 138/73. GENERAL: She is awake. She is alert. She is oriented x3. She is a well-developed, well-nourished, obese white female, who is in no acute distress. HEENT: Normocephalic, atraumatic. Pupils equal, reactive bilaterally. She has a left facial droop. Mucous membranes are moist. She has no visible lesions or thrush. NECK: Supple without lymphadenopathy, JVD, or thyromegaly. She has normal carotid upstrokes. I do not appreciate bruit. LUNGS: Clear to auscultation bilaterally anteriorly. Posteriorly, she has some faint bibasilar crac kles. These seem to clear with deep inspiration. CARDIOVASCULAR: She has a regular rhythm with normal rate. Normal S1 and S2. No S3 or S4. No florentino ble murmurs. ABDOMEN: Obese, it is nontender, nondistended. She has no hepatosplenomegaly and no rebound, rigidi ty or guarding. EXTREMITIES: Showed no cyanosis, no clubbing with trace pedal edema. SKIN: Warm, moist, and well perfused. She has no rashes or lesions. NEUROLOGIC: She has a residual left-sided facial droop and slurring of her speech. She has a normal speech pattern. Arms and legs 5/5 strength in all 4 of her extremities. MUSCULOSKELETAL: Normal to inspection. The large joints are uninflamed. She has no palpable effusi ons. LABORATORY DATA: Sodium is 137, potassium 4.3, chloride 107, bicarb 27, BUN 17, creatinine 0.86, bobbi cium 9.4, glucose of 85. Her liver functions are normal with AST of 37, ALT slightly elevated at 59. CBC showed a white count of 10.3, hemoglobin 14.3, hematocrit 42.9 and platelet count was 378,000 a nd normal differential. Her ammonia was normal at 24. Lactic acid 1.6. INR 0.9. CK-MB normal at 1 .8, troponin I is less than 0.010. Her urinalysis was within normal limits. Brain CT showed no acute disease. ASSESSMENT AND PLAN: 1. Possible transient ischemic attack. We will get a fasting lipid profile. We will ask the Neurol alexandrarena to evaluate. She has had no arrhythmias overnight. She is currently back to her baseline. I wi ll go and check her carotid ultrasound given her history and make sure there are no significant lesio ns. We will hold off any MRI or MRA at this point until she is seen by Neurology. 2. Dysphagia: We will have Speech Therapy to see her. She has been doing well per nurses. Should not be any issues. 3. History of coronary artery disease without symptoms. 4. Hyperlipidemia. 5. Hypertension. We will continue medications. 6. History of esophageal cancer/stomach cancer in 1995. 7. Gastroesophageal reflux disease, on Protonix. 8. Chronic back pain, on gabapentin which will continue. We will place the patient was placed on observation, watch through the day. We will get Neurology's input and likely home this afternoon.
== END 2017-09-17 18:05 | disposition home or self-care (01) ==
LOC: ERS 19:29 → 2SE 23:50
PROVIDERS: ADMIT Internal Medicine; ATTEND Internal Medicine
DX: R53.1 Weakness (principal); I25.10 Atherosclerotic heart disease of native coronary artery without angina pectoris; I25.2 Old myocardial infarction; E78.5 Hyperlipidemia, unspecified; I10 Essential (primary) hypertension; R05 Cough; K21.9 Gastro-esophageal reflux disease without esophagitis; M54.9 Dorsalgia, unspecified; G89.29 Other chronic pain; I69.328 Other speech and language deficits following cerebral infarction; I69.391 Dysphagia following cerebral infarction; R13.10 Dysphagia, unspecified; F12.90 Cannabis use, unspecified, uncomplicated; F17.210 Nicotine dependence, cigarettes, uncomplicated; Z79.51 Long term (current) use of inhaled steroids; Z79.02 Long term (current) use of antithrombotics/antiplatelets; Z79.899 Other long term (current) drug therapy; Z88.5 Allergy status to narcotic agent; Z88.6 Allergy status to analgesic agent; Z95.1 Presence of aortocoronary bypass graft; Z96.651 Presence of right artificial knee joint; Z90.3 Acquired absence of stomach [part of]; Z90.49 Acquired absence of other specified parts of digestive tract; Z92.21 Personal history of antineoplastic chemotherapy; Z85.01 Personal history of malignant neoplasm of esophagus; Z85.028 Personal history of other malignant neoplasm of stomach
CPT/HCPCS: 36415; 70450; 70544; 70551; 74177; 80053; 80061; 81003; 82140; 82553; 83605; 83690; 84484; 85025; 85610; 85730; 87086; 93880; 96361; 96372; 96374; G0378; G8978-GP-CH; G8979-GP-CH; G8980-GP-CH; G8987-GO-CI; G8988-GO-CI; G8989-GO-CI; J1650; J2405

== ENCOUNTER 2018-02-12 14:29 | Observation (INO) | payer OTHER ==
--- NOTE | 2018-02-12 15:59 | CT ---
CT BRAIN WITHOUT CONTRAST: HISTORY: Left-sided weakness. FINDINGS: Comparison is made with the exam of 09/16/17. Changes of chronic small-vessel ischemic disease are again seen. The ventricular size is stable and the basilar cisterns patent. Old infarct in the right cerebellar hemisphere is again seen. No evide nce of acute infarct, hemorrhage, midline shift, or abnormal extraaxial fluid collections is noted. The bony calvarium is intact. The visualized paranasal sinuses and mastoid air cells are well aerate d. IMPRESSION: No CT evidence of acute intracranial process. POS: [facility]
[2018-02-12 16:03] LABS: Bilirubin Negative (Negative); Blood, Urine Negative (Negative); Clarity CLEAR (Clear); Glucose, Urine (Dipstick) Negative (Negative); Leukocyte Negative (Negative); Nitrite Negative (Negative); Protein, Urine (Dipstick) Negative (Neg-Trace); Specific Gravity, Urine 1.019 (1.002-1.036)
[2018-02-12 16:10] LABS: #Eosinphils 0.1 thou/uL (0.0-0.7); #Monocytes 0.6 thou/uL (0.11-0.59); %Basophils 0.4 % (0.0-1.0); %Eosinophils 1.8 % (0.0-10.0); %Lymphocytes 26.2 % (21.0-51.0); %Monocytes 7.1 % (0.0-10.0); %Neutrophils 64.6 % (42.0-75.0); Hemoglobin 14.8 g/dL (12.0-16.0); Mean Corpuscular HGB CONC 34.7 g/dL (32.0-36.0); Mean Corpuscular Hemoglobin 32.2 pg (27.0-31.0); Mean Corpuscular Volume 92.7 fL (78.0-98.0); Platelet Count 282 thou/uL (130-400); RBC Distribution Width 12.5 % (11.5-14.5); White Blood Cell (WBC) Count 7.8 thou/uL (4.8-10.8)
[2018-02-12 16:19] LABS: PTT 25.9 SEC (22.9-36.1)
--- NOTE | 2018-02-12 16:22 | RAD ---
PORTABLE CHEST ONE VIEW: 02/12/18 at 4:11 p.m. HISTORY: Left sided weakness. FINDINGS: Comparison is made with the exam of 04/10/17. There are changes of median sternotomy. The heart size is normal. The lungs are expanded without foca l areas of consolidation, pneumothorax or pleural effusions. There are postop changes with metallic h ardware in the cervical spine. IMPRESSION: No radiographic evidence of acute cardiopulmonary process. POS: [facility]
[2018-02-12 16:36] LABS: ALT (SGPT) 70 U/L (8-55); AST (SGOT) 57 U/L (5-34); Albumin 4.3 g/dL (3.4-4.8); Alkaline Phosphatase 94 U/L (40-150); Anion Gap 12 mmol/L (10-20); BUN (Urea Nitrogen) 13 mg/dL (9.8-20.1); Bilirubin, Total 0.5 mg/dL (0.2-1.2); Calc. Creatinine Clearance 0 mL/min (70-130); Calcium 9.2 mg/dL (7.8-10.44); Carbon Dioxide 25 mmol/L (23-31); Chloride 103 mmol/L (98-107); Estimated GFR-MDRD 74; Globulin 3.2 g/dL (2.4-3.5); Glucose 95 mg/dL (80-115); Potassium 4.3 mmol/L (3.5-5.1); Protein, Total 7.5 g/dL (6.0-8.3); Sodium 136 mmol/L (136-145)
[2018-02-12] MEDS ORDERED: Acetaminophen 325 MG TAB ONE (16:48)
[2018-02-12 17:10] LABS: Troponin I Less than 0.010 ng/mL (< 0.028)
[2018-02-12 18:41] VITALS: BMI 35.2
[2018-02-12 19:37] LABS: Troponin I Less than 0.010 ng/mL (< 0.028)
[2018-02-12] MEDS ORDERED: PROVENTIL INHALER 6.7 G (200 INHALATIONS) INH PRN (20:22)
[2018-02-12] MEDS ORDERED: Ondansetron ODT 4 MG TAB PO PRN (20:22)
[2018-02-12] MEDS ORDERED: hydrALAZINE 20 MG/ML VIAL SLOW IVP PRN (20:22)
[2018-02-12] MEDS ORDERED: Milk Of Magnesia 30 ML UDCUP PO PRN (20:22)
[2018-02-12] MEDS ORDERED: Acetaminophen 325 MG TAB PO PRN (20:22)
[2018-02-12] MEDS ORDERED: Ipratropium Oral Inhaler (200 INHALATIONS) INH SCH (21:00)
[2018-02-12] MEDS ORDERED: Non-Formulary Item 1 EACH (Ipratropium-Albuterol [Combivent] 1 PUFF) INH SCH (21:00)
[2018-02-12] MEDS: ALPRAZolam 1 MG TAB PO SCH (21:33)
[2018-02-12] MEDS: Amlodipine 5 MG TAB PO SCH (21:35)
[2018-02-12] MEDS: DULoxetine 30 MG CAP PO SCH (21:36)
[2018-02-12] MEDS: Gabapentin 400 MG CAP PO SCH (21:36)
[2018-02-12] MEDS: hydrALAZINE 10 MG TAB PO SCH (21:39)
[2018-02-12] MEDS: Mirtazapine 30 MG TAB PO SCH (21:40)
[2018-02-12] MEDS: traZODone HCl 150 MG TAB PO SCH (21:42)
[2018-02-12] MEDS: Nicotine 14 MG PATCH TD SCH (21:42)
[2018-02-12] MEDS: Simvastatin 40 MG TAB PO SCH (21:42)
[2018-02-12] MEDS: HYDROcodone/Acetaminophen 5/325 mg Tablet PO PRN (21:43)
[2018-02-12 22:36] LABS: HBCM Index 0.08 S/CO (0-0.79); Hep A IgM AB Non-Reactive (NonReactive); Hep B Surf Ag Non-Reactive S/CO (NonReactive); Hep C IgG Ab Non-Reactive (NonReactive); Hep C Index 0.15 S/CO (0-0.79); Hepatitis B Core IGM Abs Non-Reactive (NonReactive)
--- NOTE | 2018-02-12 22:50 | HP ---
PRIMARY CARE PHYSICIAN: Dr. Nicolás Chew. CHIEF COMPLAINT: "There is something wrong with me and I do not know what it is." HISTORY OF PRESENT ILLNESS: Ms. Vasquez is a pleasant 62-year-old female that has a history of hyper tension, hyperlipidemia, coronary artery disease. She also has a history of chronic lumbar disk dise ase. She was in her usual state of health until the last few days. She says she has been having sev ere pain in her knees joints and ankles as well as her shoulders and back. She says the pain was so bad, she could barely walk. She also says that she has been a bit off balance and has fallen a few t imes and fell and hit her tailbone. She also says she has gained 15 pounds in the last month, primar simona in her abdominal region. She also says she feels a swollen placed on the right side of her neck around the rash that she notes there that has been off and on for the last month. She also says that she has trouble going to the bathroom. She says it feels like she has difficulty getting her urine out. As a result of these complaints, she came to the ER for evaluation. REVIEW OF SYSTEMS: All systems were reviewed and are negative except for that mentioned in history o f present illness. PAST MEDICAL HISTORY: Significant for transient ischemic attack, history of cerebrovascular accident which left her with some dysarthria as well as some left-sided weakness, coronary artery disease, hy perlipidemia, hypertension, esophageal cancer, stomach cancer, lumbar disk disease. PAST SURGICAL HISTORY: She has had a partial gastrectomy and a proximal small bowel resection, appen dectomy, coronary artery bypass grafting, cholecystectomy, right total knee replacement. ALLERGIES: CODEINE, MORPHINE, NSAIDS, TORADOL, and LORTAB makes her itch, but she can take it. SOCIAL HISTORY: She is . She does not have any biological children, but adopted her nieces. She is currently a smoker. She has smoked about anywhere from a pack to a pack and half of cigarett es for the last 40 years. She also drinks usually 1-2 large glasses of beer a day. FAMILY HISTORY: Significant for coronary artery disease in her father and brother as well as COPD. CURRENT MEDICATIONS: Include alprazolam 1 mg twice daily, ProAir 2 puffs q.6 hours as needed, amlodi pine 5 mg twice a day, Plavix 75 mg daily, Cymbalta 30 mg twice a day, Flonase nasal spray twice a da y, [employer] 10/325 q.8 hours as needed, ipratropium 2 puffs q.i.d., levothyroxine 25 mcg daily, losartan 100 mg at bedtime, mirtazapine 15 mg at bedtime, Dulera inhaler twice a day, Protonix 40 mg daily, s imvastatin 40 mg at bedtime, hydralazine 10 mg t.i.d., and trazodone 100 mg at bedtime. PHYSICAL EXAMINATION: GENERAL: She is alert and oriented. She appears to be in no acute distress. VITAL SIGNS: On admission include blood pressure 170/80, heart rate 93, respiratory rate is 16, temp erature is 99.1. HEENT: Pupils are equal, round, and reactive. Extraocular muscles are intact. Her sclerae anicteri c. Throat: There is no erythema, no exudates. NECK: There is no jugular venous distention, no bruits. LUNGS: Clear to auscultation. She did have some mild expiratory wheezing, but no rales. CARDIOVASCULAR: She had a normal S1, S2. I do not appreciate an S3 or S4. No murmurs, clicks, no r ubs. ABDOMEN: Obese. It is soft, positive for bowel sounds. She did have some dullness at the flank, an d there was some diffuse tenderness, but no rebound or guarding. EXTREMITIES: She has got 1-2+ pitting edema. NEUROLOGIC: She did have some mild right facial droop and she did have some weakness in both her upp er and lower extremities on the left side. Negative straight leg raises. She was able to dorsiflex her large toe on both feet with her joints. There was no obvious joint effusion or warmth or redness in the knee joints or in the shoulders or ankles. LABORATORY RESULTS: Urinalysis was negative. White blood cell count 7.8, hemoglobin 14.8, hematocri t 42.7, platelet count is 282. INR is 1.0. Sodium 136, potassium 4.3, chloride is 103, CO2 is 25, B UN of 13, creatinine 0.79, glucose is 95. Urinalysis was negative. Troponin is less than 0.010. George nam had a CT scan of the brain, which did not show any acute intracranial process. ASSESSMENT AND PLAN: This is a 62-year-old female that presents to the emergency room with some vagu e complaints including shoulder joint and knee pains as well as 15-pound weight gain and also low carolina k pain. She will be placed in observation. We will get an MRI of the lumbar spine to see if she has any significant lumbar disk disease. Also, we will check her post-residual volume of urine just to determine if she has any urinary retention. For the joint pains, we will get an JACINTO as well as anti- CCP, a sed rate, and a hepatitis panel to check for arthritis and reactive arthritis. We will also o btain an abdominal ultrasound to see whether or not she has any ascites and if so further workup can be done from there. Otherwise, we will continue her on her previous home medications and treat her w ith [employer] for pain and also it was noted that there was some behavior that was concerning for potenti al drug seeking behavior in that she requested methadone for pain and/or fentanyl. At this point, th ere is no obvious etiology of pain that will require that degree of medication.
[2018-02-13 06:00] LABS: #Eosinphils 0.2 thou/uL (0.0-0.7); #Lymphocytes 1.3 thou/uL (1.20-3.40); #Monocytes 0.5 thou/uL (0.11-0.59); #Neutrophils 4.4 thou/uL (1.40-6.50); %Basophils 0.5 % (0.0-1.0); %Eosinophils 2.9 % (0.0-10.0); %Lymphocytes 20.8 % (21.0-51.0); %Monocytes 7.5 % (0.0-10.0); %Neutrophils 68.4 % (42.0-75.0); Hemoglobin 13.7 g/dL (12.0-16.0); Mean Corpuscular HGB CONC 33.4 g/dL (32.0-36.0); Mean Corpuscular Hemoglobin 31.2 pg (27.0-31.0); Mean Corpuscular Volume 93.6 fL (78.0-98.0); Mean Platelet Volume 5.9 fL (7.4-10.4); Platelet Count 252 thou/uL (130-400); RBC Distribution Width 12.5 % (11.5-14.5); Red Blood Cell (RBC) Count 4.38 mill/uL (4.20-5.40); White Blood Cell (WBC) Count 6.4 thou/uL (4.8-10.8)
[2018-02-13 06:12] LABS: Anion Gap 13 mmol/L (10-20); BUN (Urea Nitrogen) 12 mg/dL (9.8-20.1); Calc. Creatinine Clearance 97 mL/min (70-130); Calcium 8.6 mg/dL (7.8-10.44); Carbon Dioxide 27 mmol/L (23-31); Chloride 104 mmol/L (98-107); Estimated GFR-MDRD 78; Glucose 132 mg/dL (80-115); Potassium 3.8 mmol/L (3.5-5.1); Sodium 140 mmol/L (136-145)
[2018-02-13] MEDS: HYDROcodone/Acetaminophen 5/325 mg Tablet PO PRN ×2 (06:13→20:40)
[2018-02-13] MEDS: Levothyroxine Sodium 25 MCG TAB PO SCH (06:13)
[2018-02-13] MEDS: Mometasone/Formoterol 120 PUFF INHALER INH SCH ×2 (07:11→18:10)
[2018-02-13] MEDS: Ipratropium Oral Inhaler (200 INHALATIONS) INH SCH ×4 (07:11→18:08)
[2018-02-13] MEDS: ALPRAZolam 1 MG TAB PO SCH ×2 (08:20→20:38)
[2018-02-13] MEDS: DULoxetine 30 MG CAP PO SCH ×2 (08:21→20:38)
[2018-02-13] MEDS: Gabapentin 400 MG CAP PO SCH ×3 (08:21→20:38)
[2018-02-13] MEDS: Amlodipine 5 MG TAB PO SCH ×2 (08:21→20:38)
[2018-02-13] MEDS: hydrALAZINE 10 MG TAB PO SCH ×3 (08:21→20:35)
[2018-02-13] MEDS: Enoxaparin Sodium 40 MG/0.4 ML SYRINGE SC SCH (08:21)
[2018-02-13] MEDS: Clopidogrel Bisulfate 75 MG TAB PO SCH (08:21)
--- NOTE | 2018-02-13 08:56 | ULT ---
ABDOMINAL ULTRASOUND: INDICATION: Abnormal liver function tests. FINDINGS: The patient is post cholecystectomy. The liver shows increased echogenicity consistent with fatty infiltration. The liver is mildly enlar ged measuring up to 19 cm. The spleen is upper normal size measuring 11 cm. Common bile duct is normal caliber. The abdominal aorta, IVC, and pancreas were obscured. Both kidneys are imaged and appear unremarkable. The exam is limited by overlying bowel gas. IMPRESSION: Hepatomegaly with increased echogenicity of the liver suggesting diffuse hepatic steatosis or medical hepatic disease. POS: [facility]
--- NOTE | 2018-02-13 08:59 | PDOC.PN ---
- Subjective Encounter Start Date: 02/13/18 Encounter Start Time: 08:58 Subjective: Complainining of body pain, joint pains X 2 months. shoulder pain - Objective Resuscitation Status: Resuscitation Status FULL:Full Resuscitation MAR Reviewed: Yes Vital Signs & Weight: Vital Signs (12 hours) Temp Pulse Resp BP BP Pulse Ox 02/13/18 08:21 88 120/57 L 02/13/18 07:13 92 L 02/13/18 07:11 89 16 02/13/18 04:00 97.9 F 88 20 137/60 92 L 02/13/18 00:00 98.6 F 89 16 129/59 L 94 L 02/12/18 22:00 83 16 92 L 02/12/18 21:43 98.0 F 82 20 96 02/12/18 21:39 82 119/59 L 02/12/18 21:35 98.0 F 82 20 119/59 L 119/59 L 94 L Weight Weight 174 lb 7 oz I&O: 02/12/18 02/13/18 02/14/18 06:59 06:59 06:59 Intake Total 480 Output Total 550 Balance -70 Result Diagrams: 02/13/18 05:42 02/13/18 05:42 Additional Labs: CBC, BMP: WNL Elevated LFT Hepatitis panel wnl Radiology Reviewed by me: Yes Phys Exam - Physical Examination HEENT: PERRLA, moist MMs, sclera anicteric, TM's clear Neck: no JVD, supple, full ROM right cervical lymphnode swelling Respiratory: wheezing present Cardiovascular: RRR, no significant murmur, no rub, gallop, irregular Gastrointestinal: soft, non-tender, no distention, positive bowel sounds Musculoskeletal: edema present swollen fingers Neurological: normal sensation, moves all 4 limbs Psychiatric: normal affect Deviation from normal: rash on the right side of face Dx/Plan (1) Anxiety and depression Code(s): F41.8 - OTHER SPECIFIED ANXIETY DISORDERS Status: Chronic (2) Dyslipidemia Code(s): E78.5 - HYPERLIPIDEMIA, UNSPECIFIED Status: Chronic (3) TIA (transient ischemic attack) Status: Acute (4) joint pain Status: Acute Comment: ESR wnl, pending JACINTO, MRI. - Plan cont current plan of care, PT/OT, speech therapy, DVT proph w/lovenox, DVT proph w/SCDs * .
[2018-02-13] MEDS: HYDROcodone/Acetaminophen 10/325 mg Tablet PO PRN ×2 (11:37→15:59)
--- NOTE | 2018-02-13 13:06 | MRI ---
MRI LUMBAR SPINE WITHOUT CONTRAST: Multiplanar, multisequential imaging lumbar spine obtained. INDICATION: Low back pain. COMPARISON: Comparison is made to MRI lumbar spine dated 12/16/16. FINDINGS: Lumbar vertebrae maintain height. There is a slight anterolisthesis of L4-5 which is stable from the prior study. Moderate degenerative changes are noted with anterior osteophytes. Mild loss of disk space at L1-2 and L2-3. These findings are all stable from prior exam. At L1-2 level, there are both inferior and superior end plate deformities at the disk space. Normal disk bulge. This flattens the thecal sac. No significant central canal or foraminal stenosis. At L2-3, more prominent disk bulge flattens the thecal sac. Facet arthrosis and hypertrophy. Very m ild central canal stenosis. At L3-4, mild disk bulge flattens the thecal sac. Facet arthrosis and hypertrophy. Mild central can al stenosis. Stable from prior exam. At L4-5, there is a broad-based disk protrusion which flattens the thecal sac. Facet and ligamentous hypertrophy is prominent. Posterior epidural fat compresses the posterior thecal sac. These change s result in moderate central canal stenosis. The degree of stenosis appears stable from prior exam. The broad-based protrusion also appears stable. There is slight superior and inferior extension of this protrusion. There is bilateral foraminal encroachment, more severe on the left due to the diffu se disk bulge extending into the foramina. Disk-osteophyte complex appears to contact the exiting le ft L4 nerve root within the foramina. At L5-S1, there is a broad-based disk bulge abutting the anterior thecal sac. Mild to moderate facet hypertrophy; however, no significant central canal or foraminal stenosis identified. IMPRESSION: The most significant findings are at L4-5 where there is a slight anterolisthesis and a broad-based p rotrusion flattening the thecal sac. Posterior hypertrophic changes are seen resulting moderate cent ral canal stenosis and bilateral foraminal stenosis, more pronounced on the left as described above. The findings do not appear significantly changed from 12/16/16. POS: [facility]
[2018-02-13] MEDS: Losartan 25 MG TAB PO SCH ×2 (20:36→21:44)
[2018-02-13] MEDS: Mirtazapine 30 MG TAB PO SCH (20:39)
[2018-02-13] MEDS: Nicotine 14 MG PATCH TD SCH (20:40)
[2018-02-13] MEDS: Simvastatin 40 MG TAB PO SCH (20:40)
[2018-02-13] MEDS: traZODone HCl 150 MG TAB PO SCH (20:40)
[2018-02-14] MEDS: HYDROcodone/Acetaminophen 5/325 mg Tablet PO PRN (02:35)
[2018-02-14] MEDS: Levothyroxine Sodium 25 MCG TAB PO SCH (05:57)
[2018-02-14] MEDS: Ipratropium Oral Inhaler (200 INHALATIONS) INH SCH ×4 (07:05→18:15)
[2018-02-14] MEDS: Mometasone/Formoterol 120 PUFF INHALER INH SCH ×2 (07:08→18:19)
[2018-02-14] MEDS: Amlodipine 5 MG TAB PO SCH (08:31)
[2018-02-14] MEDS: ALPRAZolam 1 MG TAB PO SCH ×2 (08:31→20:47)
[2018-02-14] MEDS: Clopidogrel Bisulfate 75 MG TAB PO SCH (08:33)
[2018-02-14] MEDS: DULoxetine 30 MG CAP PO SCH ×2 (08:33→20:46)
[2018-02-14] MEDS: Gabapentin 400 MG CAP PO SCH ×3 (08:34→20:46)
[2018-02-14] MEDS: Enoxaparin Sodium 40 MG/0.4 ML SYRINGE SC SCH (08:34)
[2018-02-14] MEDS: hydrALAZINE 10 MG TAB PO SCH ×3 (08:34→20:46)
[2018-02-14] MEDS: HYDROcodone/Acetaminophen 10/325 mg Tablet PO PRN ×4 (08:34→20:47)
[2018-02-14] MEDS ORDERED: Gadobenate Dimeglumine 529 MG/1 ML (20ML VIAL) ONE (10:59)
--- NOTE | 2018-02-14 11:41 | PDOC.PN ---
- Subjective Encounter Start Date: 02/14/18 (f/u back pain) Encounter Start Time: 11:39 Subjective: pt able to get up with PT today. c/o worsening pain for a few -: weeks, urine retention. also c/o blood pressure not being well -: controlled and generally not feeling well - Objective Resuscitation Status: Resuscitation Status FULL:Full Resuscitation Vital Signs & Weight: Vital Signs (12 hours) Temp Pulse Pulse Pulse Resp BP BP 02/14/18 11:26 97.9 F 75 20 02/14/18 11:24 80 12 02/14/18 08:34 84 140/65 02/14/18 08:31 84 140/65 02/14/18 08:16 85 83 141/65 H 02/14/18 07:43 97.9 F 84 16 02/14/18 07:20 98.3 F 83 12 02/14/18 07:08 83 12 02/14/18 07:05 83 12 02/14/18 04:00 98.6 F 80 20 02/14/18 00:23 02/14/18 00:00 97.4 F L 75 18 BP BP Pulse Ox 02/14/18 11:26 107/58 L 93 L 02/14/18 11:24 02/14/18 08:34 02/14/18 08:31 02/14/18 08:16 145/68 H 02/14/18 07:43 140/65 96 02/14/18 07:20 02/14/18 07:08 98 02/14/18 07:05 02/14/18 04:00 126/58 L 92 L 02/14/18 00:23 95 02/14/18 00:00 125/57 L 97 Weight Weight 174 lb 7 oz I&O: 02/13/18 02/14/18 02/15/18 06:59 06:59 06:59 Intake Total 1440 300 Output Total 2800 Balance -1360 300 Result Diagrams: 02/13/18 05:42 02/13/18 05:42 EKG Reviewed by me: Yes (70-80's, 15 beats of pac to 180's) Phys Exam - Physical Examination Constitutional: NAD Respiratory: no wheezing, no rales, no rhonchi Cardiovascular: RRR, no significant murmur Gastrointestinal: soft, non-tender, no distention, positive bowel sounds Musculoskeletal: no edema Neurological: non-focal Psychiatric: normal affect Deviation from normal: some garbled speech Skin: no rash Dx/Plan (1) Arrhythmia Code(s): I49.9 - CARDIAC ARRHYTHMIA, UNSPECIFIED Status: Acute Qualifiers: Arrhythmia type: other cardiac arrhythmia Qualified Code(s): I49.8 - Other specified cardiac arrhythmias (2) Herniated disc Code(s): KEW6113 - Status: Chronic Qualifiers: Spinal region: lumbar Qualified Code(s): M51.26 - Other intervertebral disc displacement, lumbar region (3) History of stroke Code(s): Z86.73 - PRSNL HX OF TIA (TIA), AND CEREB INFRC W/O RESID DEFICITS Status: Chronic (4) Tobacco abuse Code(s): Z72.0 - TOBACCO USE Status: Chronic (5) CAD (coronary artery disease) Code(s): I25.10 - ATHSCL HEART DISEASE OF [place] CORONARY ARTERY W/O ANG PCTRS Status: Chronic Qualifiers: Coronary Disease-Associated Artery/Lesion type: bypass graft Associated angina: without angina (6) Dyslipidemia Code(s): E78.5 - HYPERLIPIDEMIA, UNSPECIFIED Status: Chronic (7) GERD (gastroesophageal reflux disease) Code(s): K21.9 - GASTRO-ESOPHAGEAL REFLUX DISEASE WITHOUT ESOPHAGITIS Status: Chronic Qualifiers: Esophagitis presence: esophagitis presence not specified Qualified Code(s) : K21.9 - Gastro-esophageal reflux disease without esophagitis (8) Hypertension Code(s): I10 - ESSENTIAL (PRIMARY) HYPERTENSION Status: Chronic Qualifiers: Hypertension type: essential hypertension Qualified Code(s): I10 - Essential (primary) hypertension (9) Hypothyroidism Code(s): E03.9 - HYPOTHYROIDISM, UNSPECIFIED Status: Chronic Qualifiers: Hypothyroidism type: unspecified Qualified Code(s): E03.9 - Hypothyroidism , unspecified - Plan * acute on chronic neck pain with radiation down arm and some urinary retention - consult Neurosurgery * Arrhythmia - pAT - echo and cardiology consult * urine retention - d/c camacho, straight cath four times daily and teach patient to perform this at home. She will need f/u with Urology * * bp controlled - continue all home meds as ordered * other medical conditions - stable, continue home meds * * dvt prophy - scd's * gi prophy - not indicated * code status full * reviewed plan of care withpatient, no questions or further needs at end of eval.
[2018-02-14 12:03] LABS: CCP IgG Antibody 0.8 EliAU/mL (<7 Negative); EliA RAS New Method **** NEW METHOD ****; Rheumatoid Factor IgA Antibody 4.6 IU/mL (<14 Negative); Rheumatoid Factor IgM Antibody 1.9 IU/mL (<3.5 Negative)
--- NOTE | 2018-02-14 13:32 | CON ---
DATE OF CONSULTATION: 02/14/2018 ATTENDING PHYSICIAN: Dr. Jed Andino HISTORY OF PRESENT ILLNESS: The patient is a 62-year-old female with PMH CAD on plavix, CVA with residual left sided weakness, known to us for a prior C5-C6 ACDF in 2013, who presented to the emergency department on 2017 for multiple complaints of generalized weakness, increased falling, neck and back pain. She has a long history of chronic low back pain and neck discomfort which she reports has been tolerable until several months ago when she began having increasing low back discomfort and neck pain with radiation into a C6 pattern on the left after a mechanical fall. She reports that over the last few months she has been feeling generally weak throughout the upper and lower extremities and has had multiple falls at home. She reports her left sided weakness seems increased from her baseline. With walking, she states she feels fatigued all over and can only go short distances before she must sit down and rest. With regards to her lower extremities, she reports with walking she develops numbness and tingling in a nonradicular pattern. Upper extremities she reports shooting pain in a left C6 pattern and bilateral dysesthesias (numbness/tingling) at night. Patient was brought to the emergency department for further evaluation of these symptoms and at that time was found to have a postvoid urine residual of 500 mL. During this admission, the patient had a noncontrast lumbar MRI which is notable for mild degenerative changes throughout the lumbar spine, most pronounced at L4-L5 with mild anterolisthesis. There is no significant nerve compression in the lumbar levels that would account for her current symptoms. PAST MEDICAL HISTORY: Coronary artery disease on Plavix, TIA and CVA with some residual dysarthria and some chronic left-sided weakness, hyperlipidemia, hypertension, esophageal cancer, stomach cancer, chronic neck and back pain. PAST SURGICAL HISTORY: Partial gastrectomy and small-bowel resection, appendectomy and coronary artery disease status post grafting, cholecystectomy, total knee replacement, C5-C6 ACDF. ALLERGIES: The patient is allergic to CODEINE, MORPHINE, NSAIDS, TORADOL, LORTAB. SOCIAL HISTORY: She is . She smokes approximately 1 pack per day for the last 40 years. She drinks 1-2 beers per day. FAMILY HISTORY: Noncontributory. PHYSICAL EXAMINATION: GENERAL: The patient is sitting comfortably in the bed in no acute distress. VITAL SIGNS: Temperature is 97.9, pulse is 75, respiration rate is 20. The patient is 93% on room air, BP is 107/58. HEENT: Head is normocephalic, atraumatic. EYES: PERRLA. Extraocular movements intact. ENT: Oral mucosa is pink, intact, moist. She has a normal voice. NECK: Nontender to palpation. Free active range of motion, no meningismus or nuchal rigidity. CARDIOVASCULAR: She has regular rate and rhythm. LUNGS: She is breathing comfortably. Symmetric chest expansion. MUSCULOSKELETAL: She has free active range of motion of all extremities. She is generally hyporeflexive throughout bilateral upper and lower extremities in the biceps jerk, triceps jerk, knee jerk and ankle jerk reflexes 4+/4. Negative Lake's, negative clonus. 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 Also slightly weak over all muscle groups in the LLE 4+/5. Right UE, LE 5/5 strength. NEUROLOGIC: She is alert and oriented x4. I did not attempt to ambulate the patient given her fall risk. ASSESSMENT AND PLAN: This is a patient who is known to us for prior C5-C6 ACDF in 2013 for a herniated disk, who presented for increased falling, worsening left sided weakness, neck pain with radiation to the left C6 pattern as well as low back discomfort. She was evaluated with a lumbar MRI which although does show some degenerative changes, does not account for her increasing weakness and falls. Pt is a poor historian and it is difficult to assess how much of her left sided weakness is new. We will plan to evaluate the patient's symptoms further with a cervical MRI with and without contrast, non contrast thoracic MRI , and MRI brain with and without contrast. Once that is complete, we will review and Dr. Andino will also see the patient. ROBBIE
--- NOTE | 2018-02-14 16:00 | MRI ---
MRI CERVICAL SPINE NONCONTRAST: DATE: 02/14/18. HISTORY: A 62-year-old female with cervicalgia. FINDINGS: Alignment is normal. Vertebral body heights are maintained. There is moderate degenerative facet di sease bilaterally at C7-T1. No high-grade facet DJD at any other level. There are anterior metallic plate and screws at C5 and C6, with associated magnetic susceptibility artifact which makes it very difficult to evaluate bone marrow signal at C5 and C6. The bone marrow signal is normal at all other levels. All disk spaces (other than C5-6, which is partially obscured) are maintained. Cervical sp inal cord is normal in size. No definite intramedullary signal abnormality is identified. No syrinx . There are patchy areas of hyperintense T2 artifact through the spinal cord at multiple levels. Al ignment is normal. C1-2: No high-grade central stenosis. C2-3: No high-grade central stenosis. Mild right neural foraminal stenosis. No left neural foramin al stenosis. C3-4: Mild central spinal canal stenosis. Mild to moderate right degenerative facet changes. Sherrie l left facet joint. Bilateral small to moderate size uncinate process osteophytes result in moderate to severe right neural foraminal stenosis. Minimal left neural foraminal stenosis. C4-5: Moderate central spinal canal stenosis almost entirely on a congenital basis due to developmen tally short pedicles. Bilateral uncinate process osteophytes encroachment upon the neural foramina. Moderate to severe right neural foraminal stenosis. Moderate left neural foraminal stenosis. C5-6: Moderate to severe central spinal canal stenosis due to developmentally short pedicles exacerb ated by shallow central and bilateral paracentral disk-osteophytic bar complex. Moderate-size bilate ral uncinate process osteophytes. Severe bilateral neural foraminal stenosis, left worse than right. C6-7: Small central disk protrusion or disk-osteophyte complex exacerbates the developmentally small -caliber spinal canal, causing moderate to severe central spinal canal stenosis. Mild bilateral neur al foraminal stenosis. C7-T1: Mild central spinal canal stenosis. Mild to moderate bilateral neural foraminal stenosis. IMPRESSION: 1. Developmentally small-caliber spinal canal exacerbated by mild cervical spondylosis. 2. Status post anterior cervical diskectomy and fusion at C5-6. 3. Moderate to severe central spinal canal stenosis at C5-6 and C6-7. 4. High-grade neural foraminal stenosis at certain levels. POS: [facility]
--- NOTE | 2018-02-14 16:13 | MRI ---
MRI BRAIN WITH AND WITHOUT CONTRAST: DATE: 02/14/2018 HISTORY: A 62-year-old female with frequent falls and left body weakness. COMPARISON: Noncontrast MRI from 09/17/2017. TECHNIQUE: Multiple sequences obtained in axial, sagittal, and coronal planes; pre and post IV injection of gado linium-based contrast agent: MultiHance 20 mL. FINDINGS: Again noted are the multiple foci of old infarctions in the right cerebellar hemisphere, of varying s izes, from very small to moderate sized. Most of them are in the right PICA territory. There are patchy, moderate chronic ischemic white matter changes throughout the vanessa. There are 2 patchy asymmetrical T2-hyperintense focal signal abnormalities in the left parietal deep white matter, consistent with chronic ischemic white matter changes or small old white matter infarct ions. There are numerous much smaller focal T2 hyperintense signal abnormalities in the bilateral price ra diata and the centrum semiovale, consistent with chronic ischemic white matter changes. The ventricl es are normal in size and configuration. There is no restricted diffusion to indicate any acute infa rction. There is no evidence of recent or remote major intraaxial hemorrhage. No abnormal enhanceme nt or mass. No mass effect, midline shift, or extraaxial fluid collection. Flow voids are grossly m aintained in the major arteries of the [place]. No interval change is detected on the nonco ntrast portions of the MRI compared to the prior study. IMPRESSION: 1. Multiple old infarctions in the right cerebellar hemisphere, of varying sizes, in the right PICA (posterior-inferior cerebellar artery)territory. 2. Mild to moderate chronic ischemic white matter changes of the bilateral cerebral hemispheres. 3. Moderate chronic ischemic white matter changes of the vanessa. 4. No acute findings, and no mass effect. CARLOZ Herrera POS: [facility]
--- NOTE | 2018-02-14 16:16 | MRI ---
MRI THORACIC SPINE WITHOUT CONTRAST: 02/14/18 Multiplanar and multisequential imaging of the thoracic spine obtained. INDICATION: Back pain. Frequent falls. FINDINGS: The thoracic vertebrae maintain normal height and alignment. Vertebral body signal is normally preser kiara. There are mild to moderate degenerative changes seen with anterior osteophytes throughout the th oracic spine. Mild loss of disc space throughout the thoracic spine. There is a small focal disc prot rusion paracentrally to the right at T8-T9 which compresses the anterior thecal sac and impinges on t he anterior cord on the right. At T9-T10 there is mild disc bulge which mildly effaces the anterior subarachnoid space. No cord impi ngement. No other significant bulge or protrusion. Thoracic cord signal is normally maintained. IMPRESSION: Focal disc protrusion paracentrally to the right at T8-T9 compresses the anterior thecal sac on the r ight and impinges on the anterior cord. POS: [facility]
[2018-02-14] MEDS: Losartan 25 MG TAB PO SCH (20:46)
[2018-02-14] MEDS: traZODone HCl 150 MG TAB PO SCH (20:46)
[2018-02-14] MEDS: Mirtazapine 30 MG TAB PO SCH (20:46)
[2018-02-14] MEDS: Nicotine 14 MG PATCH TD SCH (20:50)
[2018-02-14] MEDS ORDERED: Atorvastatin Calcium 40 MG TAB PO SCH (21:00)
[2018-02-15] MEDS: HYDROcodone/Acetaminophen 10/325 mg Tablet PO PRN ×4 (01:23→14:15)
[2018-02-15] MEDS: Levothyroxine Sodium 25 MCG TAB PO SCH (05:39)
[2018-02-15 06:29] LABS: #Eosinphils 0.2 thou/uL (0.0-0.7); #Lymphocytes 1.9 thou/uL (1.20-3.40); #Monocytes 0.5 thou/uL (0.11-0.59); #Neutrophils 3.7 thou/uL (1.40-6.50); %Basophils 0.2 % (0.0-1.0); %Eosinophils 2.6 % (0.0-10.0); %Lymphocytes 30.1 % (21.0-51.0); %Neutrophils 59.1 % (42.0-75.0); Hemoglobin 13.4 g/dL (12.0-16.0); Mean Corpuscular HGB CONC 32.8 g/dL (32.0-36.0); Mean Corpuscular Volume 94.4 fL (78.0-98.0); Mean Platelet Volume 6.2 fL (7.4-10.4); Platelet Count 237 thou/uL (130-400); RBC Distribution Width 12.3 % (11.5-14.5); Red Blood Cell (RBC) Count 4.33 mill/uL (4.20-5.40); White Blood Cell (WBC) Count 6.2 thou/uL (4.8-10.8)
[2018-02-15 06:35] LABS: ALT (SGPT) 53 U/L (8-55); AST (SGOT) 47 U/L (5-34); Albumin 3.7 g/dL (3.4-4.8); Alkaline Phosphatase 79 U/L (40-150); Anion Gap 11 mmol/L (10-20); BUN (Urea Nitrogen) 13 mg/dL (9.8-20.1); Bilirubin, Total 0.4 mg/dL (0.2-1.2); Calc. Creatinine Clearance 89 mL/min (70-130); Calcium 8.8 mg/dL (7.8-10.44); Carbon Dioxide 29 mmol/L (23-31); Chloride 103 mmol/L (98-107); Estimated GFR-MDRD 71; Globulin 2.8 g/dL (2.4-3.5); Glucose 126 mg/dL (80-115); Potassium 4.3 mmol/L (3.5-5.1); Protein, Total 6.5 g/dL (6.0-8.3); Sodium 139 mmol/L (136-145)
[2018-02-15] MEDS: Mometasone/Formoterol 120 PUFF INHALER INH SCH (06:52)
[2018-02-15] MEDS: Ipratropium Oral Inhaler (200 INHALATIONS) INH SCH ×3 (06:53→15:18)
[2018-02-15] MEDS: hydrALAZINE 10 MG TAB PO SCH ×2 (08:26→14:15)
[2018-02-15] MEDS: DULoxetine 30 MG CAP PO SCH (08:26)
[2018-02-15] MEDS: Enoxaparin Sodium 40 MG/0.4 ML SYRINGE SC SCH (08:26)
[2018-02-15] MEDS: Gabapentin 400 MG CAP PO SCH ×2 (08:26→14:14)
[2018-02-15] MEDS: Clopidogrel Bisulfate 75 MG TAB PO SCH (08:26)
[2018-02-15] MEDS: ALPRAZolam 1 MG TAB PO SCH (08:26)
--- NOTE | 2018-02-15 09:25 | PDOC.PN ---
- Subjective Encounter Start Date: 02/15/18 (f/u back pain) Encounter Start Time: 09:22 Subjective: Pt reports the pain persists. Denies any new sx or concerns. -: No urine retention via bladder scan, she reports bladder is emptying -: normally. - Objective Resuscitation Status: Resuscitation Status FULL:Full Resuscitation Vital Signs & Weight: Vital Signs (12 hours) Temp Pulse Resp BP Pulse Ox 02/15/18 08:26 82 02/15/18 08:00 98 F 82 20 02/15/18 07:47 98.0 F 82 20 150/76 H 93 L 02/15/18 06:56 95 02/15/18 06:53 81 12 02/15/18 06:52 81 12 02/15/18 04:00 97.3 F L 81 18 110/56 L 96 02/15/18 00:40 95 02/15/18 00:00 97.9 F 80 19 115/56 L 95 Weight Weight 174 lb 7 oz I&O: 02/14/18 02/15/18 02/16/18 06:59 06:59 06:59 Intake Total 1440 1900 Output Total 2800 1875 Balance -1360 25 Result Diagrams: 02/15/18 06:01 02/15/18 06:01 EKG Reviewed by me: Yes (sinus 70's) Phys Exam - Physical Examination Constitutional: NAD speech unchanged - slightly slurred Respiratory: no wheezing, no rales, no rhonchi Cardiovascular: RRR, no significant murmur Gastrointestinal: soft, non-tender, no distention, positive bowel sounds Musculoskeletal: no edema Neurological: moves all 4 limbs Psychiatric: normal affect Skin: no rash Dx/Plan (1) Arrhythmia Code(s): I49.9 - CARDIAC ARRHYTHMIA, UNSPECIFIED Status: Acute Qualifiers: Arrhythmia type: other cardiac arrhythmia Qualified Code(s): I49.8 - Other specified cardiac arrhythmias (2) Herniated disc Code(s): [id number] - Status: Chronic Qualifiers: Spinal region: lumbar Qualified Code(s): M51.26 - Other intervertebral disc displacement, lumbar region (3) History of stroke Code(s): Z86.73 - PRSNL HX OF TIA (TIA), AND CEREB INFRC W/O RESID DEFICITS Status: Chronic (4) Tobacco abuse Code(s): Z72.0 - TOBACCO USE Status: Chronic (5) CAD (coronary artery disease) Code(s): I25.10 - ATHSCL HEART DISEASE OF [place] CORONARY ARTERY W/O ANG PCTRS Status: Chronic Qualifiers: Coronary Disease-Associated Artery/Lesion type: bypass graft Associated angina: without angina (6) Dyslipidemia Code(s): E78.5 - HYPERLIPIDEMIA, UNSPECIFIED Status: Chronic (7) GERD (gastroesophageal reflux disease) Code(s): K21.9 - GASTRO-ESOPHAGEAL REFLUX DISEASE WITHOUT ESOPHAGITIS Status: Chronic Qualifiers: Esophagitis presence: esophagitis presence not specified Qualified Code(s) : K21.9 - Gastro-esophageal reflux disease without esophagitis (8) Hypertension Code(s): I10 - ESSENTIAL (PRIMARY) HYPERTENSION Status: Chronic Qualifiers: Hypertension type: essential hypertension Qualified Code(s): I10 - Essential (primary) hypertension (9) Hypothyroidism Code(s): E03.9 - HYPOTHYROIDISM, UNSPECIFIED Status: Chronic Qualifiers: Hypothyroidism type: unspecified Qualified Code(s): E03.9 - Hypothyroidism , unspecified - Plan * * acute on chronic neck pain with radiation - NS eval completed yesterday along with MRI's - await further recommendations * * Arrhythmia - pAT 2 days ago - appreciate Cardiology consult - pt started on diltiazem, echo pending * * urine retention - not an issue, continue monitoring. * * Pain - pt on norco here - did not have pain meds at home and states she cannot take tramadol. Discussed with her that I'm only able to write for a few days of [place] at discharge, and further pain meds will need to come either from PCP or traffic line painter. She states understanding of this, and is encouraged to call Dr. Chew for a referral to Pain specialist and to call and make an appointment. Start bowel meds. * * Pt needs help at home - she states [facility] related to her 100% disabled . * * bp controlled - continue all home meds as ordered * * other medical conditions - stable, continue home meds * * dvt prophy - scd's * gi prophy - not indicated * code status full * reviewed plan of care with patient, no questions or further needs at end of eval. * anticipate discharge when cleared by Neurosurgery and Cardiology
[2018-02-15] MEDS ORDERED: Polyethylene Glycol 3350 17 GM Packet PO PRN (09:27)
--- NOTE | 2018-02-15 09:37 | CON ---
DATE OF CONSULTATION: 02/15/2018 HISTORY OF PRESENT ILLNESS: The patient is a 62-year-old woman, who presents for evaluation of neck discomfort and left-sided weakness. The patient was noted to have a rapid heart rate on telemetry monitoring. The patient has a long history of coronary artery disease. In 2002, she underwent coronary bypass surgery x1. The patient was seen in 04/2017 with recurrent chest discomfort, for which she underwent a repeat catheterization. She did have patent a right coronary artery graft and mild coronary artery disease. The patient has been on medical therapy. She, unfortunately, continues to smoke. The patient was admitted with neck discomfort and persistent weakness on her left side. The patient denies having any present chest discomfort. PAST MEDICAL HISTORY: 1. History of TIA. 2. History of cerebrovascular accident. 3. History of coronary artery disease. 4. Hypertension. 5. Hyperlipidemia. 6. Esophageal carcinoma. 7. Stomach carcinoma. PAST SURGICAL HISTORY: Gastrectomy, bowel resection, appendectomy, coronary bypass surgery, knee replacement, and cholecystectomy. ALLERGIES: CODEINE, NSAIDs, MORPHINE, TORADOL, LORTAB. SOCIAL HISTORY: The patient continues to smoke a pack per day. FAMILY HISTORY: Strong family history of coronary artery disease. MEDICATIONS ON ADMISSION: See nursing list. REVIEW OF SYSTEMS: Noticeable for increasing dyspnea and occasional palpitations. PHYSICAL EXAMINATION: GENERAL: This is an obese woman in no acute distress. VITAL SIGNS: Blood pressure 107/58. NECK: No jugular venous distention. LUNGS: Coarse breath sounds bilateral. HEART: Regular rate and rhythm. Normal S1 and S2. No murmurs. ABDOMEN: Distended. EXTREMITIES: Showed mild edema. VASCULAR: Radial pulses are 2+. LABORATORY RESULTS: Her sodium is 140, potassium 3.8, chloride 104, bicarbonate 27, BUN 12, creatinine is 0.75, glucose is 132, troponin less than 0.01. White blood cell count 6.4, hemoglobin 13.7, hematocrit 41.0, platelets are 252. Her INR was 1.0. Her EKG revealed normal sinus rhythm, prolonged QT interval, low voltage QRS. software applications developer revealed short run of nonsustained SVT. IMPRESSION: 1. Supraventricular tachycardia. 2. History of coronary artery disease. 3. History of coronary bypass surgery x1. 4. Hypertension. 5. History of esophageal/stomach carcinoma. 6. Dyslipidemia. 7. Tobacco abuse. This patient presents with neck discomfort and left-sided weakness. She most likely has degenerative joint disease in her cervical spine. She is undergoing an evaluation. The patient was noted to have a short run of nonsustained supraventricular tachycardia. With her history of chronic obstructive pulmonary disease, I would recommend the patient be treated with Cardizem. We will start this medication and discontinue Norvasc. We would also recommend switching to Lipitor since there is a drug interaction with Zocor. We will follow this patient with you through her hospitalization. ROBBIE
[2018-02-15 11:57] VITALS: BP 133/65; TEMP 98.6
--- NOTE | 2018-02-15 12:11 | PRG ---
DATE OF SERVICE: 02/15/2018 The patient was seen and examined, and I agree with Rimma Sexton's evaluation, 02/14/2018. The noemi ent is a 62-year-old woman, who was admitted with back pain and diffuse pain in arms and legs. She a lso complained of left-sided weakness. She has a history of old strokes and generally is a relativel y poor historian. It is unclear whether the weakness is new or progressive, but the pain is certainl y the main presenting factor. Imaging of the entire spine and the brain have been performed. In the lumbar spine, she has L4-5 spo ndylolisthesis. In the thoracic and cervical spine, she has minor disk pathology without nerve compr ession. In the brain, she has old infarction and no acute findings. IMPRESSION AND PLAN: There are no acute spinal lesions. Certainly, the L4-5 spondylolisthesis could be causing back pain, but none of the other patient's pain symptoms or weakness are explained by the imaging of the spine. Her left-sided weakness could be a sequelae of an old stroke, but there does not seem to be any new acute process. I have no specific neurosurgical recommendations at this time. She could be mobilized or dismissal a t the discretion of the primary service.
[2018-02-15] MEDS ORDERED: Docusate 100 MG CAP PO SCH (21:00)
--- NOTE | 2018-02-15 23:18 | DIS ---
DATE OF ADMISSION: 02/12/2018 DATE OF DISCHARGE: 02/15/2018 PRIMARY CARE PHYSICIAN: Dr. Chew. CONSULTANTS: 1. Dr. Andino of Neurosurgery. 2. Dr. Santiago of Cardiology. MEDICATIONS: Reconciled at discharge. NEW MEDICATIONS: 1. Diltiazem CD 180 mg p.o. once daily. Prescription provided for 30 days further refills to come from Dr. Santiago. 2. Over the counter Docusate sodium 100 mg b.i.d. 3. Knox Dale 04/325 one tablet every 4 hours as needed for [id number] pain. Prescription provided for 15 tablets, no refills. Further refills to come from pain management. MEDICATIONS TO DISCONTINUE: None. CHANGED MEDICATIONS: None HOME MEDICATIONS: Resume: 1. Xanax 1 mg p.o. b.i.d. 2. ProAir 2 puffs every 6 hours as needed. 3. Amlodipine 5 mg b.i.d. 4. Plavix 75 mg daily. 5. Cymbalta 30 mg p.o. b.i.d. 6. Gabapentin 800 mg t.i.d. 7. Atrovent two puffs 4 times daily or Combivent 1 puff b.i.d. 8. Levothyroxine 25 mcg daily. 9. Losartan 100 mg at night. 10. Remeron 15 mg at night. 11. Dulera 1 puff b.i.d. 12. Protonix 40 mg daily. 13. Simvastatin 40 mg at night. 14. Hydralazine 10 mg t.i.d. 15. Trazodone 150 mg at night. FINAL DIAGNOSES: 1. Acute on chronic back and arm pain secondary to herniated disk, degenerative disk, disease. 2. Paroxysmal atrial tachycardia, resolved. SECONDARY DIAGNOSES: 1. Coronary artery disease with history of bypass. 2. History of stroke with residual dysarthria and left-sided weakness. 3. Dyslipidemia. 4. Hypertension. 5. History of esophageal and stomach cancer. 6. Mildly elevated liver function tests with hepatic steatosis. 7. Chronic obstructive pulmonary disease. HISTORY OF PRESENT ILLNESS: Ms. Vasquez is a 62-year-old female who presented to the emergency room with severe pain in her knees and ankles, shoulders, and back, to the point where she could barely walk. She has also been complaining of difficulty with urination. She was admitted for further evaluation of this. HOSPITAL COURSE: Patient underwent an MRI of her L-spine, with the L-spine showing multiple abnormal areas; however, no significant difference compared to her prior MRI. Due to the findings, Neurosurgery was consulted and cervical spine, thoracic spine MRIs as well as an MRI of the brain was performed. Neurosurgery reevaluated the patient today and reported that there is no surgical intervention, pain management is needed. Patient has been managed with Knox Dale here, which she says improves her pain. She has not been to see a supervisor painting department, and will need this as an outpatient. She may be a candidate for injections or other therapies in addition to managing oral medications. She will be prescribed Knox Dale at discharge; however, discussed with her only for a few days, with recommendation that she follow up with Dr. Chew her primary care provider for referral to supervisor painting department as soon as possible. Patient did have labs performed for rheumatoid arthritis, which include a rheumatoid factor IgA and IgM both negative and anti-CCP also negative. Patient was monitored on telemetry and found to have 15 beats of paroxysmal atrial tachycardia. She was evaluated by Dr. Santiago with initiation of diltiazem and over the past 24 hours has not had a recurrence. She will be discharged on the diltiazem at the same dose and with recommendation to follow up with Dr. Santiago within 2-3 weeks for reevaluation of heart, consideration of echocardiogram, and refill of medication. Patient was continued on her usual medications, encouraged with tobacco cessation. For the urinary retention, she had a Vernon catheter in place which was removed yesterday. Bladder scan shows that her bladder is being completely empty, no indication for straight catheterization. Patient is up and ambulating, pain is improved, and she does meet criteria for discharge to home. PHYSICAL EXAMINATION: Please to see note on the chart for today. [facility]ALE[facility] FINDINGS AND TEST RESULTS: 1. Rheumatoid factor IgA 4.6, negative when less than 7; rheumatoid factor IgM 1.9, negative when less than 14; CCP IgG 0.8, negative when less than 7. Urinalysis was negative. Chemistry on today 139, 4.3, 103, 29, 13, 0.82, 126. 2. AST 47, ALT 53, alkaline phosphatase 79, total protein 6.5, albumin 3.7. 3. CBC: 6.2, 13.4, 40.8, 237. 4. Hepatitis A, B surface antigen, B-core antibody, and C antibody are all nonreactive. 5. Brain MRI shows multiple old infarctions in the right cerebellar hemisphere of varying sizes in the right PICA; [id number] chronic ischemic white matter changes of the bilateral cerebral hemispheres; moderate chronic ischemic white matter changes of the vanessa and no acute findings. 6. Thoracic spine MRI shows focal disk protrusion paracentrally to the right T8 -T9 compressions of the anterior thecal sac on the right and impinges on the anterior cord. 7. Cervical spine MRI shows developmentally small caliber spinal canal exacerbated by mild cervical spondylosis; status post anterior cervical diskectomy and fusion at C5-6; [id number]-os-[id number] central spinal canal stenosis at C5-6 and C6-7; high grade neural foraminal stenosis at certain levels. 8. Lumbar spine MRI shows no significant findings are L4-L5, where there is slight anterior listhesis and a broad-based protrusion flattening of the thecal sac. Posterior hypertrophic changes are seen, resulting in moderate central canal stenosis and bilateral foraminal stenosis, more pronounced on the left. Findings do not appear significantly changed from 12/16/2016. 9. Abdominal ultrasound on 02/13/2018, hepatomegaly with increased echogenicity of the liver suggesting diffuse hepatic steatosis or medical hepatic disease. 10. Chest x-ray on 02/12/2018, no radiographic evidence of an acute cardiopulmonary process. 11. Brain CT on 02/12/2018, no CT evidence of an acute intracranial process. DIET: Heart-healthy. ACTIVITY: As tolerated. FOLLOWUP: 1. With Dr. Chew for referral the pain management and to address any other health needs. 2. Dr. Santiago within 2-3 weeks for reevaluation of heart, consideration of echocardiogram, and management of diltiazem and refills. 3. With Pain Management for evaluation and treatment. Reviewed with patient this hospitalization, the findings of her test studies, see care precautions, the importance of followup, the necessity of a supervisor painting department, and she demonstrates understanding. Total time coordinating discharge is 45 minutes. ROBBIE
== END 2018-02-15 15:40 | disposition home or self-care (01) ==
LOC: ERS 14:29 → 2SE 18:25
PROVIDERS: ADMIT Internal Medicine; ATTEND Internal Medicine
DX: M48.02 Spinal stenosis, cervical region (principal); M51.24 Other intervertebral disc displacement, thoracic region; M51.26 Other intervertebral disc displacement, lumbar region; G89.29 Other chronic pain; M54.2 Cervicalgia; M25.519 Pain in unspecified shoulder; M25.569 Pain in unspecified knee; R63.5 Abnormal weight gain; R53.1 Weakness; I10 Essential (primary) hypertension; E78.5 Hyperlipidemia, unspecified; I25.10 Atherosclerotic heart disease of native coronary artery without angina pectoris; I69.322 Dysarthria following cerebral infarction; I69.354 Hemiplegia and hemiparesis following cerebral infarction affecting left non-dominant side; F17.210 Nicotine dependence, cigarettes, uncomplicated; F41.8 Other specified anxiety disorders; I49.8 Other specified cardiac arrhythmias; K21.9 Gastro-esophageal reflux disease without esophagitis; E03.9 Hypothyroidism, unspecified; Z79.02 Long term (current) use of antithrombotics/antiplatelets; Z79.899 Other long term (current) drug therapy; Z98.1 Arthrodesis status; Z95.1 Presence of aortocoronary bypass graft; Z96.651 Presence of right artificial knee joint; Z90.3 Acquired absence of stomach [part of]; Z90.49 Acquired absence of other specified parts of digestive tract; Z88.5 Allergy status to narcotic agent; Z88.8 Allergy status to other drugs, medicaments and biological substances
CPT/HCPCS: 36415; 51702; 70450; 70553; 71045; 72141; 72146; 72148; 76700; 80048; 80053; 80074; 81003; 83520; 84484; 85025; 85610; 85652; 85730; 86200; 93005; 94664; 96372; A9579; G0378; G8978-GP-CJ; G8979-GP-CH; G8987-GO-CI; G8988-GO-CI; G8989-GO-CI; G8996-GN-CI; G8997-GN-CI; J1650; Q0162

== ENCOUNTER 2018-02-27 16:59 | Emergency (ER) | payer OTHER ==
[2018-02-27 17:44] LABS: #Basophils 0.1 thou/uL (0.0-0.2); #Eosinphils 0.3 thou/uL (0.0-0.7); #Lymphocytes 2.3 thou/uL (1.20-3.40); #Monocytes 0.7 thou/uL (0.11-0.59); #Neutrophils 5.7 thou/uL (1.40-6.50); %Basophils 0.8 % (0.0-1.0); %Lymphocytes 24.9 % (21.0-51.0); %Monocytes 8.1 % (0.0-10.0); %Neutrophils 63.2 % (42.0-75.0); Hemoglobin 14.2 g/dL (12.0-16.0); Mean Corpuscular HGB CONC 34.2 g/dL (32.0-36.0); Mean Corpuscular Hemoglobin 32.3 pg (27.0-31.0); Mean Corpuscular Volume 94.7 fL (78.0-98.0); Mean Platelet Volume 6.3 fL (7.4-10.4); Platelet Count 310 thou/uL (130-400); RBC Distribution Width 12.5 % (11.5-14.5)
[2018-02-27 18:08] LABS: ALT (SGPT) 36 U/L (8-55); AST (SGOT) 32 U/L (5-34); Albumin 4.1 g/dL (3.4-4.8); Alkaline Phosphatase 83 U/L (40-150); Anion Gap 14 mmol/L (10-20); BUN (Urea Nitrogen) 14 mg/dL (9.8-20.1); Bilirubin, Total 0.3 mg/dL (0.2-1.2); Calc. Creatinine Clearance 0 mL/min (70-130); Carbon Dioxide 24 mmol/L (23-31); Chloride 105 mmol/L (98-107); Estimated GFR-MDRD 60; Globulin 3.3 g/dL (2.4-3.5); Glucose 84 mg/dL (80-115); Potassium 4.3 mmol/L (3.5-5.1); Protein, Total 7.4 g/dL (6.0-8.3); Sodium 139 mmol/L (136-145)
== END 2018-02-27 20:48 | disposition left against medical advice (07) ==
LOC: ERS 16:59
DX: Z53.21 Procedure and treatment not carried out due to patient leaving prior to being seen by health care provider (principal)
CPT/HCPCS: 36415; 80053; 85025

== ENCOUNTER 2018-03-08 13:35 | Observation (INO) | payer OTHER ==
--- NOTE | 2018-03-08 14:14 | RAD ---
CHEST ONE VIEW: History: Chest pain. Comparison: 02-12-18 FINDINGS: Single view of the chest. There is atherosclerosis of the aorta. Normal cardiac silhouette. The pulmo nary vessels are within normal limits. Chronic change in the lung parenchyma, without consolidation o r mass. No pneumothorax or osseous abnormality. IMPRESSION: No acute cardiopulmonary process. POS: [facility]
[2018-03-08 15:11] LABS: Hemoglobin 14.8 g/dL (12.0-16.0); Mean Corpuscular HGB CONC 33.4 g/dL (32.0-36.0); Mean Corpuscular Hemoglobin 31.8 pg (27.0-31.0); Mean Corpuscular Volume 95.2 fL (78.0-98.0); RBC Distribution Width 12.2 % (11.5-14.5); Red Blood Cell (RBC) Count 4.66 mill/uL (4.20-5.40); White Blood Cell (WBC) Count 11.3 thou/uL (4.8-10.8)
[2018-03-08 15:12] LABS: ALT (SGPT) 42 U/L (8-55); AST (SGOT) 27 U/L (5-34); Alkaline Phosphatase 92 U/L (40-150); Anion Gap 11 mmol/L (10-20); BUN (Urea Nitrogen) 24 mg/dL (9.8-20.1); Bilirubin, Total 0.3 mg/dL (0.2-1.2); CK (CPK) 60 U/L (29-168); Calc. Creatinine Clearance 0 mL/min (70-130); Calcium 9.2 mg/dL (7.8-10.44); Carbon Dioxide 23 mmol/L (23-31); Chloride 109 mmol/L (98-107); Estimated GFR-MDRD 48; Glucose 111 mg/dL (80-115); Lipase 13 U/L (8-78); Potassium 3.9 mmol/L (3.5-5.1); Sodium 139 mmol/L (136-145)
[2018-03-08 15:16] LABS: CKMB 2.4 ng/mL (0-6.6); Troponin I Less than 0.010 ng/mL (< 0.028)
[2018-03-08 15:52] LABS: #Eosinphils 0.2 thou/uL (0.0-0.7); #Lymphocytes 2.5 thou/uL (1.20-3.40); #Monocytes 0.6 thou/uL (0.11-0.59); %Basophils 0.1 % (0.0-1.0); %Lymphocytes 22.4 % (21.0-51.0); %Monocytes 5.2 % (0.0-10.0); %Neutrophils 70.2 % (42.0-75.0); Mean Platelet Volume 6.4 fL (7.4-10.4); PLT Morphology Comment Appears Adequate; Platelet Count 367 thou/uL (130-400); RBC Morphology Normal
[2018-03-08] MEDS ORDERED: Nitroglycerin 2% Ointment 1 INCH/1 GM Packet ONE (16:08)
[2018-03-08] MEDS ORDERED: Ketorolac Tromethamine 30 MG/ML VIAL ONE (16:15)
[2018-03-08 18:32] LABS: Troponin I Less than 0.010 ng/mL (< 0.028)
[2018-03-08] MEDS ORDERED: Ondansetron ODT 4 MG TAB SL PRN (19:11)
[2018-03-08] MEDS ORDERED: Ondansetron HCl/PF 4 MG/2 ML Vial IVP PRN (19:11)
[2018-03-08] MEDS ORDERED: Acetaminophen 325 MG TAB PO PRN (19:11)
[2018-03-08 19:38] VITALS: BMI 34.8
[2018-03-08 21:27] LABS: Troponin I Less than 0.010 ng/mL (< 0.028)
[2018-03-08] MEDS: HYDROcodone/Acetaminophen 10/325 mg Tablet PO PRN (22:08)
[2018-03-08] MEDS: Nitroglycerin 2% Ointment 1 INCH/1 GM Packet TOP SCH (22:10)
[2018-03-09] MEDS: HYDROcodone/Acetaminophen 10/325 mg Tablet PO PRN ×3 (02:01→12:29)
[2018-03-09] MEDS ORDERED: Levothyroxine Sodium 25 MCG TAB PO SCH (06:00)
[2018-03-09] MEDS ORDERED: Mometasone/Formoterol 120 PUFF INHALER INH SCH (06:30)
--- NOTE | 2018-03-09 06:38 | HP ---
CHIEF COMPLAINT: Chest pain. HISTORIAN: The patient, reliable. HISTORY OF PRESENT ILLNESS: This is a 62-year-old female with past medical history of coronary arter y disease, hyperlipidemia, hypertension, presenting with chest pain which started this morning. The patient was taking her to dialysis center and she has previous chest pain, which radiated to the throat and also to her left arm. Patient states that the chest pain was discomfort in nature, it was pressure-like in quality. On the pain scale, the patient stated that the pain is rated as 9/10. The patient stated that she has had a similar chest pain 3 days ago and it has progressively gotten worse, especially with ambulation, which gets better with rest. The patient stated she did not take anything to alleviate her pain; however, she took her regular medications that she normally takes. Patient reports having some night sweats, blurry vision, nausea, vomiting x2 and having chronic back pain. REVIEW OF SYSTEMS: Positive for nausea, vomiting x2, blurry vision, night sweats, shortness of breat h, chest pain radiating to the neck. Otherwise, as documented in the HPI, all other systems were rev iewed and are negative. PAST MEDICAL HISTORY: Significant for chronic obstructive pulmonary disease; LA x2; hyperlipidemia; hypertension; esophagus; stomach cancer, treated with surgery; chemotherapy in 1985; CVA in 2013; deg enerative disk disease. FAMILY HISTORY: Reviewed and noncontributory to this case. PAST SURGICAL HISTORY: Significant for stomach surgery due to cancer; part of the intestinal surgery due to cancer; appendectomy; CABG x3, date of surgery was 2002; cholecystectomy; right knee surgery. PSYCHIATRIC HISTORY: Includes depression. SOCIAL HISTORY: Patient drinks occasionally. Patient is a daily marijuana smoker and also smokes ci garettes more than 1 pack per year. ALLERGIES: The patient is allergic to; 1. CODEINE, reaction is itching. 2. KETOROLAC, unconfirmed. 3. MORPHINE. Patient has high nausea, itching. 4. NSAIDs. 5. TORADOL. CURRENT MEDICATIONS: Patient is on; 1. Gabapentin 800 t.i.d. 2. Duloxetine 30 mg b.i.d. 3. Amlodipine 5 mg daily. 4. Levothyroxine 25 mcg daily. 5. Trazodone 150 mg daily. 6. Xanax 1 mg b.i.d. 7. Dulera 200 mcg/5 mcg. 8. Atrovent. 9. Aspirin 81 mg. 10. Clopidogrel 75 mg. 11. Hydralazine 10 mg a daily. 12. Alprazolam 1 mg b.i.d. 13. Zofran p.r.n. PHYSICAL EXAMINATION: VITAL SIGNS: In the ED, the patient's blood pressure 156/64, pulse 94, respiratory rate 18, temperat ure 97.6. GENERAL: The patient is lying in bed comfortably, does not appear to be in any acute distress. The patient is speaking in full sentences. HEENT: Normocephalic, atraumatic. Pupils are equally round and reactive to light. Extraocular musc les are intact. No scleral icterus. Mucous membranes are moist. NECK: Supple. No JVDs. No trachea deviation. RESPIRATORY: Clear to auscultation bilaterally. No wheezing, no rales, no rhonchi is appreciated. CARDIAC: Positive S1, S2. Regular rate and rhythm. No murmurs, no gallops, no rubs appreciated. ABDOMEN: Obese abdomen, positive bowel sounds in all quadrants. No palpable masses, no distention, no tenderness, no ecchymosis. BACK: Normal inspection. No tenderness. EXTREMITIES: Upper extremities: 5/5 upper extremity strength. Good radial pulses bilaterally. Low er extremity: 5/5 lower extremities, no edema noted. Good pulses bilaterally. NEUROLOGIC: Cranial nerves II through XII are grossly intact. No focal neurologic deficits noted. SKIN: Warm, dry, and intact. IMAGING: EKG: Nonspecific EKG readings. ED COURSE: The patient was given Toradol 15mg and the patient was given Nitro-Bid transdermal. LABORATORY DATA: WBC of 11.3, hemoglobin of 14.8, hematocrit of 44.4, RDW is 12.2. Electrolytes: S odium 139, potassium 3.9, chloride 109, carbon dioxide is 23, anion gap is 11, BUN is 24, creatinine is 1.15, GFR is 48. Troponins less than 0.010 x3. Creatinine kinase is 60, CK-MB is 2.4. Lipase is 13. Glucose was 111. AST is 27, ALT is 42, alkaline phosphatase is 92. Creatinine kinase is 60. ASSESSMENT AND PLAN: This is a 62-year-old female who is being admitted to observation for chest samantha n, rule out acute coronary syndrome at this point. Troponins x3 has been negative before the stress test and echo due to patient's extensive cardiac history. We will follow up on these tests and if ne omi, the patient can be discharged to follow up with her electric power line repairer outpatient. 1. Essential hypertension. Currently, patient's blood pressures in the 150s. At this point, we lily l monitor the patient's blood pressure closely. We will give patient's blood pressure medication as needed. We will continue patient on her home blood pressure medications as well. 2. Coronary artery disease. We will continue patient on aspirin, Plavix. Continue the patient on h ome medication. 3. Hypothyroidism. We will continue patient on her home medication. 4. Nicotine dependence. We have patient on nicotine patch. We will continue to monitor the patient closely. We will advise the patient to quit smoking. 5. Chronic kidney disease, stage 3. We will monitor the patient. Currently, patient's creatinine i s 1.15. 6. History of gastroesophageal reflux disease. We will continue patient on Pepcid. 7. Chronic obstructive pulmonary disease. We will do DuoNeb treatments. We will continue patient o n her home dose of Dulera. DISPOSITION: The patient can discharge if the patient's echo and stress test comes back negative.
[2018-03-09] MEDS: Nitroglycerin 2% Ointment 1 INCH/1 GM Packet TOP SCH ×2 (07:06→14:55)
[2018-03-09] MEDS ORDERED: Regadenoson 0.4 MG/5 ML SYRINGE ONE (07:31)
[2018-03-09] MEDS ORDERED: Docusate 100 MG CAP PO SCH (09:00)
[2018-03-09] MEDS ORDERED: ALPRAZolam 1 MG TAB PO SCH (09:00)
[2018-03-09] MEDS ORDERED: DULoxetine 30 MG CAP PO SCH (09:00)
[2018-03-09] MEDS ORDERED: Amlodipine 5 MG TAB PO SCH (09:00)
[2018-03-09] MEDS ORDERED: Clopidogrel Bisulfate 75 MG TAB PO SCH (09:00)
[2018-03-09] MEDS: Gabapentin 400 MG CAP PO SCH ×2 (12:15→14:55)
[2018-03-09] MEDS: hydrALAZINE 10 MG TAB PO SCH ×2 (12:15→14:55)
--- NOTE | 2018-03-09 13:41 | NM ---
CARDIAC SPECT WITH EF AND WALL MOTION: HISTORY: A 62-year-old female with a history of chest pain, coronary artery disease, and an IA, status post co ronary artery bypass graft. TECHNIQUE: This is a Lexiscan sestamibi study. The patient was injected with 27.9 millicuries of technetium 99m sestamibi intravenously for stress images, and the patient was injected with 10 millicuries techneti um 99m sestamibi intravenously for resting images. FINDINGS: Multiple SPECT images in the short axis, vertical long axis, and horizontal long axis demonstrate no scan evidence for infarct or ischemia. TID: 1.25 LHR: 0.31 EDV: 87 mL EJECTION FRACTION: 54% MYOCARDIAL PERFUSION WALL MOTION: No significant wall motion abnormality. IMPRESSION: Unremarkable cardiac single-photon emission computed tomography with ejection fraction and wall motio n. POS: [facility]
[2018-03-09 15:44] VITALS: BP 160/69; TEMP 97.5
[2018-03-09] MEDS ORDERED: Mirtazapine 30 MG TAB PO SCH (21:00)
[2018-03-09] MEDS ORDERED: traZODone HCl 150 MG TAB PO SCH (21:00)
[2018-03-09] MEDS ORDERED: Atorvastatin Calcium 20 MG TAB PO SCH (21:00)
[2018-03-09] MEDS ORDERED: Losartan 25 MG TAB PO SCH (21:00)
--- NOTE | 2018-03-12 20:30 | EKG ---
Test Reason : CP Blood Pressure : / mmHG Vent. Rate : 093 BPM Atrial Rate : 093 BPM P-R Int : 144 ms QRS Dur : 098 ms QT Int : 344 ms P-R-T Axes : 013 017 076 degrees QTc Int : 427 ms Normal sinus rhythm Anterior infarct , age undetermined Abnormal ECG Confirmed by LEDA WALL MD ([id number]), staff editor VIVIANA MONTAGUE ([id number]) on 03/12/2018 8:30:21 PM Referred By: Confirmed By:LEDA WALL MD
== END 2018-03-09 16:46 | disposition home or self-care (01) ==
LOC: ERS 13:35 → 2NO 17:15
PROVIDERS: ADMIT Internal Medicine Infectious Disease; ATTEND Internal Medicine Infectious Disease
DX: R07.9 Chest pain, unspecified (principal); I12.9 Hypertensive chronic kidney disease with stage 1 through stage 4 chronic kidney disease, or unspecified chronic kidney disease; N18.3 Chronic kidney disease, stage 3 (moderate); I25.10 Atherosclerotic heart disease of native coronary artery without angina pectoris; K21.9 Gastro-esophageal reflux disease without esophagitis; J44.9 Chronic obstructive pulmonary disease, unspecified; E03.9 Hypothyroidism, unspecified; F17.210 Nicotine dependence, cigarettes, uncomplicated; Z79.82 Long term (current) use of aspirin; Z79.02 Long term (current) use of antithrombotics/antiplatelets; Z79.899 Other long term (current) drug therapy; Z88.5 Allergy status to narcotic agent
CPT/HCPCS: 36415; 71045; 78452; 80053; 82553; 83690; 84484; 85025; 93005; 93017; 94664; 96374; A9500; G0378; J1885; J2785

== ENCOUNTER 2018-04-01 10:06 | Outpatient (CLI) | payer OTHER ==
--- NOTE | 2018-04-01 13:20 | CT ---
HIGH RESOLUTION CHEST CT WITHOUT CONTRAST: Date: 04/01/18 COMPARISON: None. HISTORY: COPD. TECHNIQUE: Multiple contiguous axial images were obtained in a high resolution chest CT without contrast. This i s performed in supine and prone position. Coronal reformats were performed. FINDINGS: No suspicious pulmonary nodules are seen. No infiltrates are seen in the lungs. No significant increa sed interlobular or intralobular septal thickening that is seen. No bronchiectasis is present. The heart is normal in size. No hilar or mediastinal lymphadenopathy are appreciated on this limited noncontrast examination. Calcifications are seen in the coronary arteries and aorta. There is diffuse fatty infiltration of the liver. The other visualized subdiaphragmatic structures ar e unremarkable. Degenerative changes are seen in the spine. The patient is status post sternotomy. Th e chest wall soft tissues are unremarkable. IMPRESSION: 1. No evidence of significant intrathoracic abnormality. 2. Fatty liver. POS: [facility]
== END 2018-04-01 10:07 | disposition home or self-care (01) ==
LOC: BICCT 10:06
PROVIDERS: ATTEND Family Medicine
DX: J44.9 Chronic obstructive pulmonary disease, unspecified (principal); K76.0 Fatty (change of) liver, not elsewhere classified
CPT/HCPCS: 71250

== ENCOUNTER 2018-05-06 11:25 | Emergency (ER) | payer OTHER ==
[2018-05-06] MEDS ORDERED: HYDROcodone/Acetaminophen 5/325 mg Tablet ONE (13:14)
--- NOTE | 2018-05-06 14:16 | RAD ---
LEFT ANKLE THREE VIEWS: HISTORY: Fall. Pain. COMPARISON: None. FINDINGS: There is lateral soft tissue swelling. Joint spaces are preserved. Ankle mortise is intact. No fra cture. IMPRESSION: Lateral soft tissue swelling without evidence of fracture. POS: [facility]
== END 2018-05-06 13:28 | disposition home or self-care (01) ==
LOC: ERS 11:25
DX: S93.402A Sprain of unspecified ligament of left ankle, initial encounter (principal); J44.9 Chronic obstructive pulmonary disease, unspecified; E78.5 Hyperlipidemia, unspecified; I10 Essential (primary) hypertension; Z86.73 Personal history of transient ischemic attack (TIA), and cerebral infarction without residual deficits; F41.9 Anxiety disorder, unspecified; F32.9 Major depressive disorder, single episode, unspecified; Z79.899 Other long term (current) drug therapy; Z79.82 Long term (current) use of aspirin; W19.XXXA Unspecified fall, initial encounter

== ENCOUNTER 2018-05-28 16:18 | Emergency (ER) | payer OTHER ==
[2018-05-28] MEDS ORDERED: Adacel (T-DAP) 0.5 ML VIAL ONE (16:38)
[2018-05-28] MEDS ORDERED: Bacitracin Zinc 1 Packet ONE (16:38)
== END 2018-05-28 17:30 | disposition home or self-care (01) ==
LOC: ERS 16:18
DX: T23.251A Burn of second degree of right palm, initial encounter (principal); J44.9 Chronic obstructive pulmonary disease, unspecified; I25.2 Old myocardial infarction; E78.5 Hyperlipidemia, unspecified; Z86.73 Personal history of transient ischemic attack (TIA), and cerebral infarction without residual deficits; F41.9 Anxiety disorder, unspecified; F32.9 Major depressive disorder, single episode, unspecified; I10 Essential (primary) hypertension; Z79.899 Other long term (current) drug therapy; Z79.82 Long term (current) use of aspirin; X19.XXXA Contact with other heat and hot substances, initial encounter
CPT/HCPCS: 16020; 90471; 90715

== ENCOUNTER 2018-11-30 12:33 | Emergency (ER) | payer OTHER ==
[2018-11-30 13:12] LABS: #Basophils 0.1 thou/uL (0.0-0.2); #Eosinphils 0.1 thou/uL (0.0-0.7); #Lymphocytes 1.8 thou/uL (1.20-3.40); #Monocytes 0.6 thou/uL (0.11-0.59); #Neutrophils 7.4 thou/uL (1.40-6.50); %Basophils 0.6 % (0.0-1.0); %Eosinophils 0.9 % (0.0-10.0); %Lymphocytes 18.3 % (21.0-51.0); %Monocytes 6.1 % (0.0-10.0); %Neutrophils 74.1 % (42.0-75.0); Mean Corpuscular HGB CONC 32.1 g/dL (32.0-36.0); Mean Corpuscular Hemoglobin 30.4 pg (27.0-31.0); Mean Corpuscular Volume 94.9 fL (78.0-98.0); Mean Platelet Volume 6.4 fL (7.4-10.4); Platelet Count 412 thou/uL (130-400); RBC Distribution Width 12.5 % (11.5-14.5); Red Blood Cell (RBC) Count 5.24 mill/uL (4.20-5.40)
[2018-11-30] MEDS ORDERED: Acetaminophen 500 MG TAB ONE (13:28)
[2018-11-30] MEDS ORDERED: Fentanyl 100 MCG/2 ML VIAL ONE (13:28)
[2018-11-30 13:41] LABS: ALT (SGPT) 35 U/L (8-55); AST (SGOT) 30 U/L (5-34); Albumin 4.2 g/dL (3.4-4.8); Alkaline Phosphatase 107 U/L (40-150); Anion Gap 13 mmol/L (10-20); BUN (Urea Nitrogen) 17 mg/dL (9.8-20.1); Bilirubin, Total 0.4 mg/dL (0.2-1.2); Calc. Creatinine Clearance 0 mL/min (70-130); Carbon Dioxide 26 mmol/L (23-31); Chloride 102 mmol/L (98-107); Estimated GFR-MDRD 72; Glucose 127 mg/dL (80-115); Potassium 4.4 mmol/L (3.5-5.1); Protein, Total 7.2 g/dL (6.0-8.3); Sodium 137 mmol/L (136-145)
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
== END 2018-11-30 15:52 | disposition home or self-care (01) ==
LOC: ERS 12:33
DX: R51 Headache (principal); R42 Dizziness and giddiness; M54.2 Cervicalgia; M54.9 Dorsalgia, unspecified; F41.9 Anxiety disorder, unspecified; F32.9 Major depressive disorder, single episode, unspecified; F17.210 Nicotine dependence, cigarettes, uncomplicated; V43.52XA Car driver injured in collision with other type car in traffic accident, initial encounter
CPT/HCPCS: 70450; 70498; 71260; 72125; 74177; 80053; 85025; 93005; 96361; 96374; J3010; Q9966

== ENCOUNTER 2020-07-02 17:24 | Observation (INO) | payer OTHER ==
[~2020-07-02 17:24] MED LIST changes: -ISOVUE-370 76%-LOCM 1 ML ONE; +Iopamidol-370 76% 500 ML 1 ML ONE
[2020-07-02 18:39] LABS: #Basophils 0.1 thou/uL (0.0-0.2); #Eosinphils 0.2 thou/uL (0.0-0.7); #Lymphocytes 2.7 thou/uL (1.20-3.40); #Monocytes 0.7 thou/uL (0.11-0.59); #Neutrophils 5.2 thou/uL (1.40-6.50); %Basophils 0.6 % (0.0-1.0); %Eosinophils 2.7 % (0.0-10.0); %Lymphocytes 30.4 % (21.0-51.0); %Monocytes 7.7 % (0.0-10.0); %Neutrophils 58.6 % (42.0-75.0); Hemoglobin 14.4 g/dL (12.0-16.0); Mean Corpuscular HGB CONC 33.7 g/dL (32.0-36.0); Mean Corpuscular Volume 95.1 fL (78.0-98.0); Mean Platelet Volume 6.7 fL (7.4-10.4); Platelet Count 288 thou/uL (130-400); RBC Distribution Width 11.8 % (11.5-14.5); Red Blood Cell (RBC) Count 4.51 mill/uL (4.20-5.40); White Blood Cell (WBC) Count 8.8 thou/uL (4.8-10.8)
[2020-07-02 19:08] LABS: ALT (SGPT) 76 U/L (8-55); AST (SGOT) 106 U/L (5-34); Albumin 3.7 g/dL (3.4-4.8); Alcohol 181 mg/dL (Less than 10); Alkaline Phosphatase 102 U/L (40-110); Anion Gap 19 mmol/L (10-20); BUN (Urea Nitrogen) 12 mg/dL (9.8-20.1); Bilirubin, Total 0.2 mg/dL (0.2-1.2); Calc. Creatinine Clearance 0 mL/min (70-130); Calcium 8.3 mg/dL (7.8-10.44); Carbon Dioxide 18 mmol/L (23-31); Chloride 104 mmol/L (98-107); Globulin 3.7 g/dL (2.4-3.5); Glucose 126 mg/dL (80-115); Lipase 16 U/L (8-78); Potassium 4.1 mmol/L (3.5-5.1); Protein, Total 7.4 g/dL (6.0-8.3); Sodium 137 mmol/L (136-145)
[2020-07-02] MEDS ORDERED: Morphine 4 MG/ML VIAL ONE (19:20)
[2020-07-02 20:26] LABS: Bilirubin Negative (Negative); Blood, Urine Negative (Negative); Clarity Turbid (Clear); Glucose, Urine (Dipstick) Normal (Negative); Ketone, Urine Negative (Negative); Leukocyte 500 Leu/uL (Negative); Nitrite Negative (Negative); Protein, Urine (Dipstick) Negative (Neg-Trace); Specific Gravity, Urine 1.017 (1.002-1.036); Urobilinogen Normal mg/dL (Less than 2); pH, Urine 5.5 (5.0-9.0)
[2020-07-02 20:33] LABS: Bacteria/HPF 3+ HPF (None Seen); RBC/HPF 0-3 HPF (0-3)
--- NOTE | 2020-07-02 21:07 | CT ---
CT ABDOMEN AND PELVIS WITH IV CONTRAST: 07/02/20 PROVIDED CLINICAL HISTORY: Abdominal pain. FINDINGS: Comparison is made with the study dated 02/19/20. The visualized lung bases are free of significant opacity. Diffuse fatty infiltration of the liver, is redemonstrated. There is a stable left adrenal mass. Ther e is stable dilation of the common duct presumably on the basis of patient age and post cholecystecto my status. The spleen, pancreas, right adrenal gland and kidneys appear unremarkable. The urinary bladder is conspicuously distended. There is no bowel dilatation, inflammatory fat strand ing, free fluid or free air apparent. There is no evidence for appendicitis. Conspicuous atherosclerotic vascular calcifications are seen with areas of high grade calcified steno sis involving the proximal superior mesenteric artery and celiac artery origin. The osseous structures demonstrate no concerning lytic or blastic lesions. IMPRESSION: 1. Conspicuous urinary bladder distention. 2. Chronic findings as above. POS: [facility]
--- NOTE | 2020-07-02 21:34 | CT ---
CT ANGIOGRAM ABDOMEN WITH IV CONTRAST AND 3D MIP RECONSTRUCTIONS 07/02/20 PROVIDED CLINICAL HISTORY: Mesenteric ischemia. FINDINGS: Correlation is made with the CT examination performed earlier same date. The abdominal aorta remains nonaneurysmal. There is extensive atherosclerotic vascular calcification involving the abdominal aorta and its branches. There is conspicuous multifocal atherosclerotic calci fied plaque involving the superior mesenteric artery commencing about 3.6 cm from the origin and exte nding over a length of about 5.5 cm. These calcifications result in areas of predominantly moderate b ut occasionally severe stenosis. There is moderate/severe calcified stenosis involving the celiac art vasquez origin. There is moderate calcified stenosis involving the left renal artery origin and mild calc ified stenosis involving the right renal artery origin. The inferior mesenteric artery appears normal ly opacified. There is calcified occlusion of the left common iliac artery just distal to the bifurcation. There is occlusion of the right external iliac artery as visualized. The internal iliac arteries and left ext ernal iliac artery demonstrate multifocal atherosclerotic vascular calcification without high grade s tenosis. Solid organ abdominal findings as described in recent CT. The osseous structures demonstrate no hipolito rning lytic or blastic lesions. IMPRESSION: Extensive atherosclerosis as described. POS: [facility]
[2020-07-02 22:11] LABS: Lactic Acid 3.3 mmol/L (0.5-2.2)
[2020-07-03] MEDS ORDERED: Ondansetron PF 4 MG/2 ML Vial IVP PRN (02:01)
[2020-07-03] MEDS ORDERED: Acetaminophen 325 MG TAB PO PRN (02:01)
[2020-07-03] MEDS ORDERED: Ondansetron ODT 4 MG TAB PO PRN (02:01)
[2020-07-03] MEDS ORDERED: HYDROcodone/Acetaminophen 5/325 mg Tablet PO PRN (02:01)
[2020-07-03] MEDS ORDERED: Acetaminophen 650 MG Suppository PR PRN (02:01)
--- NOTE | 2020-07-03 02:14 | PDOC.HHP ---
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 patient refers she was on her usual state of health until today when she started with abdominal pain. patient refered pain is 10/10 located in LUQ, pain is described as colicky intermittent non radiating with no aggravating or improving factors patient is also complaining of rectal pain, she states that had a recent colonoscopy and EGD and since then her hemorroids have been hurting very badly. patient denies any fever chills dysuria diarrhea nausea or vomiting. of note upon arrival patient was intoxicated with high levels of alcohol on her system, she states drinks occasionally 2-3 times a week. she states results for EGD and colonoscopy are still pending but that her doctor said preliminary that everything looked good. Hospitalist ROS - Review of Systems All other systems reviewed; all pertinent +/- noted in HPI/Subj Hospitalist History - Past Surgical History Past Surgical History: reports: Appendectomy, Cholecystectomy, CABG Other Surgical History: partial stomach and bowel removal - Family History Family History: reports: cardiac disorder, hypertension - Social History Smoking Status: Current every day smoker Alcohol: reports: Occassional Drugs: reports: none Living Situation: Alone - Exam General Appearance: NAD, awake alert Eye: PERRL, anicteric sclera ENT: normocephalic atraumatic, no oropharyngeal lesions Neck: supple, symmetric, no JVD Heart: RRR, no murmur, no gallops Respiratory: CTAB, no wheezes, no rales Gastrointestinal: soft, non-tender, normal bowel sounds, distended Extremities: no cyanosis, no clubbing, no edema Skin: normal turgor, no lesions, no rashes Neurological: cranial nerve grossly intact, normal sensation to touch Musculoskeletal: normal tone, normal strength Psychiatric: normal affect, normal behavior, A&O x 3 Hospitalist Results - Labs Result Diagrams: 07/02/20 18:07 07/02/20 18:07 Lab results: WBC 8.8 thou/uL (4.8-10.8) 07/02/20 18:07 Hgb 14.4 g/dL (12.0-16.0) 07/02/20 18:07 Hct 42.9 % (36.0-47.0) 07/02/20 18:07 MCV 95.1 fL (78.0-98.0) 07/02/20 18:07 Plt Count 288 thou/uL (130-400) 07/02/20 18:07 Neutrophils % 58.6 % (42.0-75.0) 07/02/20 18:07 Sodium 137 mmol/L (136-145) 07/02/20 18:07 Potassium 4.1 mmol/L (3.5-5.1) 07/02/20 18:07 Chloride 104 mmol/L (98-107) 07/02/20 18:07 Carbon Dioxide 18 mmol/L (23-31) L 07/02/20 18:07 BUN 12 mg/dL (9.8-20.1) 07/02/20 18:07 Creatinine 0.80 mg/dL (0.6-1.1) 07/02/20 18:07 Glucose 126 mg/dL (80-115) H 07/02/20 18:07 Lactic Acid 3.3 mmol/L (0.5-2.2) H 07/02/20 21:37 Calcium 8.3 mg/dL (7.8-10.44) 07/02/20 18:07 Total Bilirubin 0.2 mg/dL (0.2-1.2) 07/02/20 18:07 AST 106 U/L (5-34) H 07/02/20 18:07 ALT 76 U/L (8-55) H 07/02/20 18:07 Alkaline Phosphatase 102 U/L (40-110) 07/02/20 18:07 Troponin I Less than 0.010 ng/mL (< 0.028) 07/02/20 18:07 Serum Total Protein 7.4 g/dL (6.0-8.3) 07/02/20 18:07 Albumin 3.7 g/dL (3.4-4.8) 07/02/20 18:07 Lipase 16 U/L (8-78) 07/02/20 18:07 Urine Ketones Negative mg/dL (Negative) 07/02/20 19:59 Urine Blood Negative (Negative) 07/02/20 19:59 Urine Nitrite Negative (Negative) 07/02/20 19:59 Ur Leukocyte Esterase 500 Suzette/uL (Negative) A 07/02/20 19:59 Urine RBC 0-3 HPF (0-3) 07/02/20 19:59 Urine WBC 7-10 HPF (0-3) A 07/02/20 19:59 Ur Squamous Epith Cells 7-10 HPF (0-3) A 07/02/20 19:59 Urine Bacteria 3+ HPF (None Seen) A 07/02/20 19:59 Hospitalist H&P A/P - Problem (1) Abdominal pain Code(s): R10.9 - UNSPECIFIED ABDOMINAL PAIN Status: Acute (2) CAD (coronary artery disease) Code(s): I25.10 - ATHSCL HEART DISEASE OF [place] CORONARY ARTERY W/O ANG PCTRS Status: Chronic Qualifiers: Coronary Disease-Associated Artery/Lesion type: bypass graft Associated angina: without angina (3) Dyslipidemia Code(s): E78.5 - HYPERLIPIDEMIA, UNSPECIFIED Status: Chronic (4) History of stroke Code(s): Z86.73 - PRSNL HX OF TIA (TIA), AND CEREB INFRC W/O RESID DEFICITS Status: Chronic (5) Hypertension Code(s): I10 - ESSENTIAL (PRIMARY) HYPERTENSION Status: Chronic Qualifiers: Hypertension type: essential hypertension Qualified Code(s): I10 - Essential (primary) hypertension (6) Hypothyroidism Code(s): E03.9 - HYPOTHYROIDISM, UNSPECIFIED Status: Chronic Qualifiers: Hypothyroidism type: unspecified Qualified Code(s): E03.9 - Hypothyroidism, unspecified (7) Lactic acidosis Code(s): E87.2 - ACIDOSIS Status: Resolved (8) UTI (urinary tract infection) Status: Acute - Plan Plan: 64y/o female with the stated pmhx who present with abdominal pain abdominal pain - unclear etiology - not present at my evaluation - still complains of pain in hemorroids, they do looked inflammed, no thrombosis noted, will start preparation H - pain management - recent egd and colonoscopy which as per pt results were normal - abd pelvic ct and cta did not showed any acute findings. did show poor circulation on mesenteric area with area of moderate to severe stenosis but no acute occlusion - consider cardio evaluation - lipase 16 - normal troponin uti - u/a consistent uti - f/u urine and blood cultures - will start rocephin lactic acidosis - unclear etiology - pt did arrived intoxicated - could be secondary to alcohol ingestion - infection? - will rehydrate on f/u LA alcohol abuse - ase protocol
[2020-07-03] MEDS ORDERED: Sodium Chloride 0.9% 1,000 ML IV SCH (02:15)
[2020-07-03] MEDS ORDERED: Diazepam 5 MG TAB PO PRN (02:17)
[2020-07-03] MEDS ORDERED: Preparation H Suppository PR PRN (02:21)
[2020-07-03] MEDS ORDERED: cefTRIAXone\\ROCEPHIN 2 GM VIAL ONE (02:26)
[2020-07-03] MEDS ORDERED: Diazepam 10 MG/2 ML SYRINGE ONE (02:26)
[2020-07-03] MEDS ORDERED: Diazepam 5 MG TAB PO SCH (02:30)
[2020-07-03] MEDS ORDERED: Thiamine HCl 200 MG/2 ML VIAL IM SCH (02:30)
[2020-07-03 02:43] LABS: Band 4 % (5-11); Hemoglobin 13.8 g/dL (12.0-16.0); Lymphocytes 12 % (21-51); MDiff Complete? YES; Mean Corpuscular Hemoglobin 31.8 pg (27.0-31.0); Mean Corpuscular Volume 96.4 fL (78.0-98.0); Mean Platelet Volume 6.5 fL (7.4-10.4); Monocytes 5 % (0-10); Neutrophil 77 % (42-75); Platelet Count 249 thou/uL (130-400); Platelet Morphology Comment Appears Adequate; RBC Distribution Width 11.9 % (11.5-14.5); Reactive Lymphocytes 2 % (0-10); Red Blood Cell (RBC) Count 4.32 mill/uL (4.20-5.40); White Blood Cell (WBC) Count 7.9 thou/uL (4.8-10.8)
[2020-07-03 02:58] LABS: ALT (SGPT) 94 U/L (8-55); AST (SGOT) 138 U/L (5-34); Albumin 3.5 g/dL (3.4-4.8); Alkaline Phosphatase 94 U/L (40-110); Anion Gap 17 mmol/L (10-20); BUN (Urea Nitrogen) 9 mg/dL (9.8-20.1); Bilirubin, Total 0.3 mg/dL (0.2-1.2); Calc. Creatinine Clearance 0 mL/min (70-130); Calcium 7.6 mg/dL (7.8-10.44); Carbon Dioxide 19 mmol/L (23-31); Chloride 109 mmol/L (98-107); Globulin 3.2 g/dL (2.4-3.5); Glucose 120 mg/dL (80-115); Potassium 4.5 mmol/L (3.5-5.1); Protein, Total 6.7 g/dL (6.0-8.3); Sodium 140 mmol/L (136-145)
[2020-07-03] MEDS ORDERED: cefTRIAXone\\ROCEPHIN 2 GM in Sodium Chloride 0.9% 100 ML IVPB SCH (03:00)
[2020-07-03 05:20] LABS: SARS-CoV-2 MS2 Positive; SARS-CoV-2 N Gene Negative; SARS-CoV-2 S Gene Negative; SARS-CoV-2 by NAA Not Detected (NotDetected); SARS-CoV-2 orf1ab Negative
[2020-07-03 05:55] LABS: Lactic Acid 1.9 mmol/L (0.5-2.2)
[2020-07-03] MEDS ORDERED: Multivitamin W/ Minerals 1 TAB PO SCH (09:00)
[2020-07-03] MEDS ORDERED: Folic Acid 1 MG TAB PO SCH (09:00)
[2020-07-03] MEDS ORDERED: Enoxaparin Sodium 40 MG/0.4 ML SYRINGE SC SCH (09:00)
[2020-07-03] MEDS ORDERED: Famotidine 20 MG TAB PO SCH (09:00)
[2020-07-03] MEDS ORDERED: Folic Acid 1 MG TAB ONE (09:40)
[2020-07-03] MEDS ORDERED: Enoxaparin Sodium 40 MG/0.4 ML SYRINGE ONE (09:40)
[2020-07-03] MEDS ORDERED: Famotidine 20 MG TAB ONE (09:40)
[2020-07-03] MEDS ORDERED: Multivitamin W/ Minerals 1 TAB ONE (09:41)
--- NOTE | 2020-07-03 11:45 | PDOC.DS.DS ---
Provider - Provider Date of Admission: 07/02/20 20:28 Date of Discharge: 07/03/20 Admitting Provider: Sheldon Sales Primary Care Physician: Nicolás Chew Course - Hospital Course Hospital Course: Discharge diagnosis: 1. Urinary tract infection 2. Abdominal pain 3. Lactic acidosis 4. Alcohol abuse Hospital course: Patient is a pleasant 64-year-old lady who was admitted to the hospital on July 03, [address] angiogram of the abdomen showed extensive atherosclerosis. CT scan of the abdomen and pelvis showed conspicuous urinary bladder distention as well as some chronic findings. Patient's abdominal pain resolved following admission. Her lactic acidosis resolved as well. At the time of this dictation, urine culture and blood cultures are pending. She is advised to follow-up with her primary care provider for results of the same. She is being discharged home in a stable condition. Many thanks for allowing me to participate in your patient's care. Please feel free to contact me with any questions or concerns. Discharge destination: Home Resuscitation Status: 07/03/20 02:01 Resuscitation Status Routine Resuscitation Status: FULL: Full Resuscitation - Labs Lab Results: 07/03/20 02:16 07/03/20 02:16 Abnormal Lab Results - Last 48 hrs 07/02/20 18:07: Carbon Dioxide 18 L, AST 106 H, ALT 76 H, Globulin 3.7 H, Albumin/Globulin Ratio 1.0 L, Plasma Alcohol 181 H 07/02/20 18:07: MCH 32.0 H, MPV 6.7 L, Monocytes # 0.7 H 07/02/20 18:07: Lactic Acid 3.4 H 07/02/20 19:59: Urine Clarity Turbid A, Ur Leukocyte Esterase 500 A, Urine WBC 7-10 A, Ur Squamous Epith Cells 7-10 A, Urine Bacteria 3+ A 07/02/20 21:37: Lactic Acid 3.3 H 07/03/20 02:16: Chloride 109 H, Carbon Dioxide 19 L, BUN 9 L, Calcium 7.6 L, AST 138 H, ALT 94 H, Albumin/Globulin Ratio 1.1 L 07/03/20 02:16: MCH 31.8 H, MPV 6.5 L, Neutrophils % (Manual) 77 H, Band Neuts % (Manual) 4 L, Lymphocytes % (Manual) 12 L Microbiology - Entire Visit 07/02/20 17:50 Stool - Pending Stool Occult Blood (ANTONIO) - Final - Physical Exam Physical Exam: The patient was seen and examined on the day of discharge. Patient denies chest pain or shortness of breath. Vital signs are stable. S1 and S2 are heard. Lungs are clear to auscultation bilaterally. Plan - Discharge Medications Prescriptions: Folic Acid [Folvite] 1 mg PO DAILY #30 tab Nitrofurantoin Monohyd/M-Cryst [Macrobid 100 mg Capsule] 100 mg PO BID #14 capsule Thiamine 100 mg PO DAILY #30 tab Home Medications: Medication Instructions Recorded Confirmed Type ALPRAZolam [Xanax] 1 mg PO BID 06/14/14 06/07/20 History Amlodipine Besylate [amLODIPine 5 mg PO BID 06/14/14 06/07/20 History Besylate] Levothyroxine Sodium 25 mcg PO DAILY 06/14/14 06/07/20 History Losartan Potassium 100 mg PO HS 06/14/14 06/07/20 History Simvastatin 40 mg PO HS 06/14/14 03/08/18 History traZODone HCl 1 tab PO HS 06/14/14 06/07/20 History DULoxetine [Cymbalta] 30 mg PO BID 11/26/16 06/07/20 History Gabapentin 800 mg PO TID 11/26/16 06/07/20 History Mirtazapine [Remeron] 15 mg PO HS 11/26/16 06/07/20 History Pantoprazole [Protonix] 40 mg PO DAILY 07/18/17 03/08/18 History hydrALAZINE HCl [Hydralazine HCl] 10 mg PO BID 07/18/17 06/07/20 History Albuterol Sulfate [Proair HFA] 2 puff INH Q6HR PRN #1 inh 07/20/17 06/07/20 Rx Mometasone/Formoterol 200/5 1 puff INH BID #1 inhaler 07/20/17 06/07/20 Rx [Dulera 200 Mcg/5 Mcg Inhaler] Docusate [Colace] 100 mg PO BID cap 02/15/18 06/07/20 Rx HYDROcodone Bit/APAP 10/325 [Reserve] 1 tab PO Q4H PRN tab 02/15/18 06/07/20 Rx Diltiazem HCl [Cardizem CD] 180 mg PO BID 06/07/20 06/07/20 History Folic Acid [Folvite] 1 mg PO DAILY #30 tab 07/03/20 Rx Nitrofurantoin Monohyd/M-Cryst 100 mg PO BID #14 capsule 07/03/20 Rx [Macrobid 100 mg Capsule] Thiamine 100 mg PO DAILY #30 tab 07/03/20 Rx Allergies: codeine Allergy (Intermediate, Verified 06/07/20 11:29) ITCHING, per pt morphine Allergy (Intermediate, Verified 06/07/20 11:29) HOT, NAUSEA, ITCHING per pt ketorolac [From Toradol] Allergy (Verified 06/07/20 11:29) per pt NSAIDS (Non-Steroidal Anti-Inflamma Allergy (Verified 06/07/20 11:29) per pt - Discharge Instructions Discharge Instructions:: AVOID ALCOHOL ABUSE FOLLOW UP WITH PRIMARY CARE PROVIDER FOR FINAL BLOOD AND URINE CULTURE RESULTS. Activity:: Activity as Tolerated Nourishment:: Heart Healthy Diet - Follow up Plan Referrals: Nicolás Chew MD [Primary Care Provider] - 3 Days Nirmala Mays MD [Active] - 7 Days Disposition: HOME Quality - Care Measures CORE MEASURES:: N/A
[2020-07-04] MEDS ORDERED: Diazepam 5 MG TAB PO PRN (04:00)
[2020-07-04] MEDS ORDERED: Thiamine 100 MG TAB PO SCH (09:00)
[2020-07-04] MEDS ORDERED: Magnesium Oxide 400 MG TAB PO SCH (09:00)
--- NOTE | 2020-07-06 11:19 | EKG ---
Test Reason : Blood Pressure : / mmHG Vent. Rate : 085 BPM Atrial Rate : 085 BPM P-R Int : 168 ms QRS Dur : 104 ms QT Int : 384 ms P-R-T Axes : 056 048 039 degrees QTc Int : 456 ms Normal sinus rhythm Normal ECG Confirmed by BONNIE CHAO, BRET Blakely ([id number]), rewrite editor EVAN MONDRAGON ([id number]) on 07/06/2020 11:18:47 AM Referred By: Confirmed By:BRET NICOLE MD
== END 2020-07-03 13:48 | disposition home or self-care (01) ==
LOC: ERS 17:24 → ERHOLD 20:28
PROVIDERS: ADMIT Internal Medicine; ATTEND Internal Medicine
DX: N39.0 Urinary tract infection, site not specified (principal); R10.12 Left upper quadrant pain; E87.2 Acidosis; F10.120 Alcohol abuse with intoxication, uncomplicated; K64.9 Unspecified hemorrhoids; F17.210 Nicotine dependence, cigarettes, uncomplicated; J44.9 Chronic obstructive pulmonary disease, unspecified; I25.10 Atherosclerotic heart disease of native coronary artery without angina pectoris; E78.5 Hyperlipidemia, unspecified; I10 Essential (primary) hypertension; E03.9 Hypothyroidism, unspecified; I70.0 Atherosclerosis of aorta; I70.203 Unspecified atherosclerosis of native arteries of extremities, bilateral legs; K55.1 Chronic vascular disorders of intestine; I77.4 Celiac artery compression syndrome; I70.1 Atherosclerosis of renal artery; Z85.01 Personal history of malignant neoplasm of esophagus; Z85.028 Personal history of other malignant neoplasm of stomach; Z86.73 Personal history of transient ischemic attack (TIA), and cerebral infarction without residual deficits; Z92.21 Personal history of antineoplastic chemotherapy; Z79.02 Long term (current) use of antithrombotics/antiplatelets; Z79.82 Long term (current) use of aspirin; Z79.899 Other long term (current) drug therapy; Z88.5 Allergy status to narcotic agent; Z88.6 Allergy status to analgesic agent; Z90.3 Acquired absence of stomach [part of]; Z90.49 Acquired absence of other specified parts of digestive tract; Z95.1 Presence of aortocoronary bypass graft; Z20.828 Contact with and (suspected) exposure to other viral communicable diseases; Y90.6 Blood alcohol level of 120-199 mg/100 ml
CPT/HCPCS: 36415; 74175; 74177; 80053; 80307; 81003; 81015; 82274; 83605; 83690; 84484; 85007; 85025; 85027; 86850; 86900; 86901; 87040; 87635; 93005; 94760; 96372; 96374; 96375; G0378; J0696; J1650; J2270; J3360; J3411; J3475; J3490; Q9967; U0003

== ENCOUNTER 2021-03-11 11:29 | Emergency (ER) | payer MEDICARE, OTHER ==
[2021-03-11] MEDS ORDERED: Morphine 4 MG/ML VIAL ONE (12:39)
[2021-03-11] MEDS ORDERED: Ondansetron PF 4 MG/2 ML Vial ONE (12:39)
[2021-03-11 12:47] LABS: #Eosinphils 0.2 thou/uL (0.0-0.7); #Lymphocytes 2.4 thou/uL (1.20-3.40); #Monocytes 0.6 thou/uL (0.11-0.59); #Neutrophils 6.6 thou/uL (1.40-6.50); %Basophils 0.3 % (0.0-1.0); %Eosinophils 2.2 % (0.0-10.0); %Monocytes 6.5 % (0.0-10.0); Mean Corpuscular HGB CONC 32.6 g/dL (32.0-36.0); Mean Corpuscular Hemoglobin 30.2 pg (27.0-31.0); Mean Corpuscular Volume 92.7 fL (78.0-98.0); Mean Platelet Volume 7.3 fL (7.4-10.4); Platelet Count 290 thou/uL (130-400); RBC Distribution Width 13.1 % (11.5-14.5); Red Blood Cell (RBC) Count 4.97 mill/uL (4.20-5.40); White Blood Cell (WBC) Count 9.8 thou/uL (4.8-10.8)
[2021-03-11 13:07] LABS: ALT (SGPT) 60 U/L (8-55); AST (SGOT) 120 U/L (5-34); Albumin 3.9 g/dL (3.4-4.8); Alkaline Phosphatase 134 U/L (40-110); Anion Gap 12 mmol/L (10-20); BUN (Urea Nitrogen) 16 mg/dL (9.8-20.1); Bilirubin, Total 0.6 mg/dL (0.2-1.2); Calc. Creatinine Clearance 0 mL/min (70-130); Calcium 9.2 mg/dL (7.8-10.44); Carbon Dioxide 26 mmol/L (23-31); Chloride 101 mmol/L (98-107); Globulin 4.5 g/dL (2.4-3.5); Glucose 100 mg/dL (80-115); Lipase 4 U/L (8-78); Potassium 4.9 mmol/L (3.5-5.1); Protein, Total 8.4 g/dL (5.8-8.1); Sodium 134 mmol/L (136-145)
[2021-03-11 14:07] LABS: Bilirubin Negative (Negative); Blood, Urine Negative (Negative); Clarity Clear (Clear); Glucose, Urine (Dipstick) Normal (Negative); Ketone, Urine Negative (Negative); Leukocyte Negative Leu/uL (Negative); Nitrite Negative (Negative); Protein, Urine (Dipstick) Negative (Neg-Trace); Specific Gravity, Urine 1.004 (1.002-1.036); Urobilinogen Normal mg/dL (Less than 2); pH, Urine 5.5 (5.0-9.0)
[2021-03-11] MEDS ORDERED: HYDROcodone/Acetaminophen 5/325 mg Tablet ONE (14:59)
== END 2021-03-11 15:52 | disposition home or self-care (01) ==
LOC: ERS 11:29
DX: R10.9 Unspecified abdominal pain (principal); Z86.73 Personal history of transient ischemic attack (TIA), and cerebral infarction without residual deficits; I25.2 Old myocardial infarction; E78.5 Hyperlipidemia, unspecified; E78.00 Pure hypercholesterolemia, unspecified; I10 Essential (primary) hypertension; F17.210 Nicotine dependence, cigarettes, uncomplicated; Z79.899 Other long term (current) drug therapy
CPT/HCPCS: 74176; 80053; 81003; 83690; 85025; 87086; 96374; 96375; J2270; J2405

== ENCOUNTER 2021-04-28 10:41 | Inpatient (IN) | payer MEDICARE, MEDICAID ==
[2021-04-28] MEDS ORDERED: Morphine 4 MG/ML VIAL ONE (11:01)
[2021-04-28 11:37] LABS: #Eosinphils 0.2 thou/uL (0.0-0.7); #Lymphocytes 2.3 thou/uL (1.20-3.40); #Monocytes 0.6 thou/uL (0.11-0.59); #Neutrophils 4.6 thou/uL (1.40-6.50); %Basophils 0.2 % (0.0-1.0); %Eosinophils 2.3 % (0.0-10.0); %Lymphocytes 30.3 % (21.0-51.0); %Monocytes 7.3 % (0.0-10.0); %Neutrophils 59.9 % (42.0-75.0); Hemoglobin 14.6 g/dL (12.0-16.0); Mean Corpuscular HGB CONC 32.6 g/dL (32.0-36.0); Mean Corpuscular Hemoglobin 30.1 pg (27.0-31.0); Mean Corpuscular Volume 92.2 fL (78.0-98.0); Mean Platelet Volume 7.4 fL (7.4-10.4); Platelet Count 299 thou/uL (130-400); RBC Distribution Width 13.4 % (11.5-14.5); Red Blood Cell (RBC) Count 4.85 mill/uL (4.20-5.40); White Blood Cell (WBC) Count 7.7 thou/uL (4.8-10.8)
[2021-04-28 11:58] LABS: ALT (SGPT) 37 U/L (8-55); AST (SGOT) 52 U/L (5-34); Albumin 3.6 g/dL (3.4-4.8); Alkaline Phosphatase 94 U/L (40-110); Anion Gap 11 mmol/L (10-20); BUN (Urea Nitrogen) 12 mg/dL (9.8-20.1); Bilirubin, Total 0.3 mg/dL (0.2-1.2); Calc. Creatinine Clearance 0 mL/min (70-130); Calcium 8.8 mg/dL (7.8-10.44); Carbon Dioxide 25 mmol/L (23-31); Chloride 106 mmol/L (98-107); Globulin 3.5 g/dL (2.4-3.5); Glucose 172 mg/dL (80-115); Lipase 10 U/L (8-78); Potassium 4.3 mmol/L (3.5-5.1); Protein, Total 7.1 g/dL (5.8-8.1); Sodium 138 mmol/L (136-145)
[2021-04-28 12:35] LABS: SARS-CoV-2 NAA Rapid Test Not Detected (NotDetected)
[2021-04-28] MEDS ORDERED: Ondansetron PF 4 MG/2 ML Vial IVP PRN (14:29)
[2021-04-28] MEDS ORDERED: Ondansetron ODT 4 MG TAB PO PRN (14:29)
[2021-04-28] MEDS ORDERED: Dextrose 50% Abboject 50 ML SYRINGE SLOW IVP PRN (14:41)
[2021-04-28] MEDS ORDERED: Dextrose 5% in Water 1,000 ML IV PRN (14:41)
[2021-04-28] MEDS ORDERED: HumaLOG 300 UNITS/3 ML VIAL SC PRN ×2 (14:41)
[2021-04-28] MEDS ORDERED: Sodium Chloride 0.9% 1,000 ML IV SCH (15:00)
[2021-04-28] MEDS ORDERED: Fentanyl 100 MCG/2 ML VIAL SLOW IVP PRN (17:34)
[2021-04-28 17:36] LABS: Hemoglobin 14.3 g/dL (12.0-16.0)
[2021-04-28] MEDS: metroNIDAZOLE 500 MG in Premix Bag 1 BAG IVPB SCH (20:16)
[2021-04-28] MEDS: Acetaminophen 325 MG TAB PO PRN (20:22)
[2021-04-29] MEDS: metroNIDAZOLE 500 MG in Premix Bag 1 BAG IVPB SCH ×3 (04:12→21:00)
[2021-04-29 04:45] LABS: #Eosinphils 0.2 thou/uL (0.0-0.7); #Lymphocytes 1.9 thou/uL (1.20-3.40); #Monocytes 0.4 thou/uL (0.11-0.59); #Neutrophils 3.1 thou/uL (1.40-6.50); %Basophils 0.8 % (0.0-1.0); %Eosinophils 3.7 % (0.0-10.0); %Lymphocytes 33.4 % (21.0-51.0); %Monocytes 7.8 % (0.0-10.0); %Neutrophils 54.2 % (42.0-75.0); Hemoglobin 13.4 g/dL (12.0-16.0); Mean Corpuscular HGB CONC 32.3 g/dL (32.0-36.0); Mean Corpuscular Volume 92.8 fL (78.0-98.0); Mean Platelet Volume 7.3 fL (7.4-10.4); Platelet Count 263 thou/uL (130-400); RBC Distribution Width 13.2 % (11.5-14.5); Red Blood Cell (RBC) Count 4.47 mill/uL (4.20-5.40); White Blood Cell (WBC) Count 5.6 thou/uL (4.8-10.8)
[2021-04-29 05:04] LABS: Anion Gap 11 mmol/L (10-20); BUN (Urea Nitrogen) 8 mg/dL (9.8-20.1); Calc. Creatinine Clearance 67 mL/min (70-130); Calcium 8.1 mg/dL (7.8-10.44); Carbon Dioxide 23 mmol/L (23-31); Chloride 109 mmol/L (98-107); Glucose 122 mg/dL (80-115); Potassium 3.9 mmol/L (3.5-5.1); Sodium 139 mmol/L (136-145)
[2021-04-29] MEDS: Acetaminophen 325 MG TAB PO PRN ×2 (05:24→09:28)
[2021-04-29 10:32] VITALS: BMI 24.2
[2021-04-29] MEDS ORDERED: Gabapentin 100 MG CAP PO ONE (10:50)
[2021-04-29] MEDS ORDERED: traMADol HCl 50 MG TAB PO PRN (11:50)
[2021-04-29] MEDS ORDERED: Albuterol Sulfate 2.5 mg/3 ml Neb NEB PRN (12:22)
[2021-04-29] MEDS ORDERED: Non-Formulary Item 1 EACH (Gabapentin [Gabapentin] 800 MG Tablet) PO SCH (15:00)
[2021-04-29] MEDS: Mometasone 200 MCG/Formoterol 5 MCG 120 PUFF INHALER INH SCH (18:40)
[2021-04-29] MEDS: Losartan 25 MG TAB PO SCH (20:59)
[2021-04-29] MEDS: Atorvastatin Calcium 20 MG TAB PO SCH (20:59)
[2021-04-29] MEDS: DULoxetine 30 MG CAP PO SCH (21:00)
[2021-04-29] MEDS: Metoprolol Tartrate 25 MG TAB PO SCH (21:00)
[2021-04-29] MEDS: ALPRAZolam 1 MG TAB PO SCH (21:00)
[2021-04-29] MEDS ORDERED: diphenhydrAMINE 25 MG CAP PO PRN (21:31)
[2021-04-29] MEDS: HYDROcodone/Acetaminophen 5/325 mg Tablet PO PRN (23:11)
[2021-04-29 23:51] LABS: Bacteria/HPF None Seen HPF (None Seen); Bilirubin Negative (Negative); Blood, Urine Negative (Negative); Clarity Clear (Clear); Glucose, Urine (Dipstick) Normal (Negative); Ketone, Urine Negative (Negative); Leukocyte Negative Leu/uL (Negative); Nitrite Negative (Negative); Protein, Urine (Dipstick) Negative (Neg-Trace); RBC/HPF 0-3 HPF (0-3); Specific Gravity, Urine 1.009 (1.002-1.036); Squamous Epithelial 0-3 HPF (0-3); Urobilinogen Normal mg/dL (Less than 2); WBC/HPF 0-3 HPF (0-3); pH, Urine 5.5 (5.0-9.0)
[2021-04-30] MEDS: metroNIDAZOLE 500 MG in Premix Bag 1 BAG IVPB SCH ×2 (03:55→11:31)
[2021-04-30] MEDS: Levothyroxine Sodium 25 MCG TAB PO SCH (06:04)
[2021-04-30] MEDS: HYDROcodone/Acetaminophen 5/325 mg Tablet PO PRN ×3 (06:38→17:04)
[2021-04-30 07:52] LABS: #Eosinphils 0.2 thou/uL (0.0-0.7); #Lymphocytes 1.8 thou/uL (1.20-3.40); #Monocytes 0.5 thou/uL (0.11-0.59); #Neutrophils 3.4 thou/uL (1.40-6.50); %Basophils 0.6 % (0.0-1.0); %Eosinophils 3.2 % (0.0-10.0); %Lymphocytes 30.4 % (21.0-51.0); %Monocytes 7.9 % (0.0-10.0); Mean Corpuscular HGB CONC 32.6 g/dL (32.0-36.0); Mean Corpuscular Hemoglobin 30.1 pg (27.0-31.0); Mean Corpuscular Volume 92.3 fL (78.0-98.0); Mean Platelet Volume 7.2 fL (7.4-10.4); Platelet Count 299 thou/uL (130-400); RBC Distribution Width 13.3 % (11.5-14.5); Red Blood Cell (RBC) Count 4.99 mill/uL (4.20-5.40); White Blood Cell (WBC) Count 5.8 thou/uL (4.8-10.8)
[2021-04-30] MEDS: Mometasone 200 MCG/Formoterol 5 MCG 120 PUFF INHALER INH SCH ×2 (07:55→18:20)
[2021-04-30 07:56] LABS: Hemoglobin A1c 6.5 % (4.0-6.0)
[2021-04-30 08:08] LABS: Anion Gap 13 mmol/L (10-20); BUN (Urea Nitrogen) 5 mg/dL (9.8-20.1); Calc. Creatinine Clearance 56 mL/min (70-130); Calcium 8.9 mg/dL (7.8-10.44); Carbon Dioxide 25 mmol/L (23-31); Chloride 105 mmol/L (98-107); Glucose 129 mg/dL (80-115); Potassium 3.9 mmol/L (3.5-5.1); Sodium 139 mmol/L (136-145)
[2021-04-30] MEDS ORDERED: Fleet Enema 133 ML BOT FS SCH (08:15)
[2021-04-30] MEDS: Amlodipine 5 MG TAB PO SCH (08:16)
[2021-04-30] MEDS: ALPRAZolam 1 MG TAB PO SCH ×2 (08:16→20:44)
[2021-04-30] MEDS: Metoprolol Tartrate 25 MG TAB PO SCH ×2 (08:16→20:45)
[2021-04-30] MEDS: DULoxetine 30 MG CAP PO SCH ×2 (08:17→20:43)
[2021-04-30] MEDS ORDERED: Lidocaine 1% PF 5 ML VIAL ONE (10:21)
[2021-04-30] MEDS ORDERED: PHENYLEPHRINE-NS 100 MCG/ML 10 ML SYRINGE ONE (10:21)
[2021-04-30] MEDS ORDERED: Ondansetron HCl/PF 4 MG/2 ML Vial IVP PRN (10:32)
[2021-04-30] MEDS ORDERED: Cholestyramine/Aspartame 4 gm Packet PO SCH (11:00)
[2021-04-30] MEDS: Atorvastatin Calcium 20 MG TAB PO SCH (20:43)
[2021-04-30] MEDS: Losartan 25 MG TAB PO SCH (20:45)
[2021-04-30] MEDS: Cholestyramine/Aspartame 4 gm Packet PO SCH (20:46)
[2021-05-01] MEDS: HYDROcodone/Acetaminophen 5/325 mg Tablet PO PRN ×2 (02:17→08:51)
[2021-05-01] MEDS: Levothyroxine Sodium 25 MCG TAB PO SCH (05:41)
[2021-05-01 06:11] LABS: #Eosinphils 0.2 thou/uL (0.0-0.7); #Lymphocytes 1.8 thou/uL (1.20-3.40); #Monocytes 0.5 thou/uL (0.11-0.59); %Basophils 0.5 % (0.0-1.0); %Lymphocytes 27.2 % (21.0-51.0); %Monocytes 7.6 % (0.0-10.0); %Neutrophils 61.7 % (42.0-75.0); Hemoglobin 14.4 g/dL (12.0-16.0); Mean Corpuscular HGB CONC 32.1 g/dL (32.0-36.0); Mean Corpuscular Hemoglobin 29.6 pg (27.0-31.0); Mean Corpuscular Volume 92.1 fL (78.0-98.0); Mean Platelet Volume 7.4 fL (7.4-10.4); Platelet Count 305 thou/uL (130-400); RBC Distribution Width 13.3 % (11.5-14.5); Red Blood Cell (RBC) Count 4.86 mill/uL (4.20-5.40); White Blood Cell (WBC) Count 6.4 thou/uL (4.8-10.8)
[2021-05-01 06:27] LABS: Anion Gap 14 mmol/L (10-20); BUN (Urea Nitrogen) 6 mg/dL (9.8-20.1); Calc. Creatinine Clearance 55 mL/min (70-130); Calcium 8.7 mg/dL (7.8-10.44); Carbon Dioxide 25 mmol/L (23-31); Chloride 105 mmol/L (98-107); Glucose 138 mg/dL (80-115); Potassium 4.5 mmol/L (3.5-5.1); Sodium 139 mmol/L (136-145)
[2021-05-01] MEDS: Mometasone 200 MCG/Formoterol 5 MCG 120 PUFF INHALER INH SCH (07:53)
[2021-05-01] MEDS: DULoxetine 30 MG CAP PO SCH (08:46)
[2021-05-01] MEDS: Metoprolol Tartrate 25 MG TAB PO SCH (08:46)
[2021-05-01] MEDS: ALPRAZolam 1 MG TAB PO SCH (08:46)
[2021-05-01] MEDS: Amlodipine 5 MG TAB PO SCH (08:50)
[2021-05-01 08:52] VITALS: BP 123/58
[2021-05-01 08:56] VITALS: TEMP 97.9
[2021-05-01] MEDS: Cholestyramine/Aspartame 4 gm Packet PO SCH (11:42)
== END 2021-05-01 12:00 | disposition home or self-care (01) | DRG 395 ==
LOC: ERS 10:41 → T4-A 14:08 → OBSVTOIN 04-30 09:12
PROVIDERS: ADMIT Family Medicine; ATTEND Family Medicine
PROC: 0DBG8ZX Excision of Left Large Intestine, Via Natural or Artificial Opening Endoscopic, Diagnostic (ICD-10-PCS; principal; 2021-04-30)
PROC: 0DBL8ZX Excision of Transverse Colon, Via Natural or Artificial Opening Endoscopic, Diagnostic (ICD-10-PCS; 2021-04-30)
DX: K64.4 Residual hemorrhoidal skin tags (principal); Z20.822 Contact with and (suspected) exposure to COVID-19; K52.9 Noninfective gastroenteritis and colitis, unspecified; I25.10 Atherosclerotic heart disease of native coronary artery without angina pectoris; I10 Essential (primary) hypertension; E03.9 Hypothyroidism, unspecified; K57.30 Diverticulosis of large intestine without perforation or abscess without bleeding; R73.9 Hyperglycemia, unspecified; J44.9 Chronic obstructive pulmonary disease, unspecified; E78.5 Hyperlipidemia, unspecified; E78.00 Pure hypercholesterolemia, unspecified; F41.9 Anxiety disorder, unspecified; F32.A Depression, unspecified; F17.210 Nicotine dependence, cigarettes, uncomplicated; E27.8 Other specified disorders of adrenal gland; Z96.651 Presence of right artificial knee joint; Z60.2 Problems related to living alone; Z88.5 Allergy status to narcotic agent; Z88.6 Allergy status to analgesic agent; Z88.8 Allergy status to other drugs, medicaments and biological substances; Z95.1 Presence of aortocoronary bypass graft; Z90.49 Acquired absence of other specified parts of digestive tract; Z98.41 Cataract extraction status, right eye; Z98.42 Cataract extraction status, left eye; Z98.1 Arthrodesis status; Z86.73 Personal history of transient ischemic attack (TIA), and cerebral infarction without residual deficits; I25.2 Old myocardial infarction; Z85.028 Personal history of other malignant neoplasm of stomach; Z85.01 Personal history of malignant neoplasm of esophagus; Z92.21 Personal history of antineoplastic chemotherapy; Z79.899 Other long term (current) drug therapy; Z79.890 Hormone replacement therapy; Z79.02 Long term (current) use of antithrombotics/antiplatelets
CPT/HCPCS: 36415; 36416; 74177; 80048; 80053; 81001; 83036; 83630; 83690; 85025; 86850; 86900; 86901; 87045; 87046; 87177; 87324; 87427; 87449; 88305; 93005; 94664; 96374; 96375; 96376; G0378; J0744; J1815; J2270; J2405; J3010; J7050; U0002

== ENCOUNTER 2021-05-18 16:40 | Emergency (ER) | payer MEDICARE, MEDICAID ==
[2021-05-18 17:51] LABS: #Eosinphils 0.2 thou/uL (0.0-0.7); #Lymphocytes 2.5 thou/uL (1.20-3.40); #Monocytes 0.6 thou/uL (0.11-0.59); #Neutrophils 5.7 thou/uL (1.40-6.50); %Basophils 0.2 % (0.0-1.0); %Eosinophils 1.9 % (0.0-10.0); %Lymphocytes 28.2 % (21.0-51.0); %Monocytes 6.2 % (0.0-10.0); %Neutrophils 63.5 % (42.0-75.0); Hemoglobin 14.5 g/dL (12.0-16.0); Mean Corpuscular HGB CONC 31.8 g/dL (32.0-36.0); Mean Corpuscular Hemoglobin 29.3 pg (27.0-31.0); Mean Corpuscular Volume 91.9 fL (78.0-98.0); Mean Platelet Volume 6.8 fL (7.4-10.4); Platelet Count 283 thou/uL (130-400); RBC Distribution Width 13.3 % (11.5-14.5); Red Blood Cell (RBC) Count 4.94 mill/uL (4.20-5.40)
[2021-05-18 18:00] LABS: Bacteria/HPF None Seen HPF (None Seen); Bilirubin Negative (Negative); Blood, Urine Trace (Negative); Clarity Clear (Clear); Glucose, Urine (Dipstick) Normal (Negative); Ketone, Urine Trace mg/dL (Negative); Leukocyte Negative Leu/uL (Negative); Nitrite Negative (Negative); Protein, Urine (Dipstick) Negative (Neg-Trace); RBC/HPF 0-3 HPF (0-3); Specific Gravity, Urine 1.014 (1.002-1.036); Squamous Epithelial 0-3 HPF (0-3); Urobilinogen Normal mg/dL (Less than 2); WBC/HPF 0-3 HPF (0-3)
[2021-05-18 18:09] LABS: Amphetamine Not Detected (NotDetected); Barbiturates Screen Not Detected (NotDetected); Benzodiazepine Screen Not Detected (NotDetected); Cocaine Metabolite Screen Not Detected (NotDetected); Methadone Not Detected (NotDetected); Methamphetamine Not Detected (NotDetected); Opiate Screen Not Detected (NotDetected); Oxycodone Screen Not Detected (NotDetected); Phencyclidine (PCP) Not Detected (NotDetected); THC/Cannabinoid Screen Detected (NotDetected); Tricyclic Screen Not Detected (NotDetected)
[2021-05-18 18:17] LABS: Acetaminophen Less than 6.0 mcg/mL (10.0-30.0); Alcohol Less than 10 mg/dL (Less than 10); Salicylate Less than 8.0 mg/dL (15.0-30.0)
[2021-05-18 18:18] LABS: ALT (SGPT) 28 U/L (8-55); AST (SGOT) 39 U/L (5-34); Albumin 3.9 g/dL (3.4-4.8); Alkaline Phosphatase 120 U/L (40-110); Anion Gap 13 mmol/L (10-20); BUN (Urea Nitrogen) 14 mg/dL (9.8-20.1); Bilirubin, Total 0.4 mg/dL (0.2-1.2); Calc. Creatinine Clearance 0 mL/min (70-130); Calcium 9.2 mg/dL (7.8-10.44); Carbon Dioxide 25 mmol/L (23-31); Chloride 103 mmol/L (98-107); Globulin 3.5 g/dL (2.4-3.5); Glucose 104 mg/dL (80-115); Lipase 6 U/L (8-78); Protein, Total 7.4 g/dL (5.8-8.1); Sodium 137 mmol/L (136-145)
== END 2021-05-18 20:07 | disposition home or self-care (01) ==
LOC: ERS 16:40
DX: R10.32 Left lower quadrant pain (principal); I10 Essential (primary) hypertension; E78.5 Hyperlipidemia, unspecified; J44.9 Chronic obstructive pulmonary disease, unspecified; I25.2 Old myocardial infarction; Z86.73 Personal history of transient ischemic attack (TIA), and cerebral infarction without residual deficits; F17.210 Nicotine dependence, cigarettes, uncomplicated
CPT/HCPCS: 36415; 80053; 80306; 80307; 81003; 81015; 82274; 83690; 85025; 99284

== ENCOUNTER 2021-11-12 13:36 | Outpatient (CLI) | payer OTHER, MEDICAID | END 2021-11-12 13:37 | disposition home or self-care (01) | LOC: BICRAD 13:36 | PROVIDERS: ATTEND Family Medicine | DX: J44.9 Chronic obstructive pulmonary disease, unspecified (principal); M51.36 Other intervertebral disc degeneration, lumbar region; M47.816 Spondylosis without myelopathy or radiculopathy, lumbar region | CPT/HCPCS: 71046; 72100 ==

== ENCOUNTER 2023-04-30 13:24 | Emergency (ER) | payer MEDICAID, OTHER ==
[~2023-04-30 13:24] MED LIST changes: -Iopamidol-370 76% 500 ML 1 ML ONE; +Iopamidol-370 76% 500 ML MDV (1 ML CHARGE) ONE
[2023-04-30 14:34] LABS: #Basophils 0.1 thou/uL (0.0-0.2); #Eosinphils 0.2 thou/uL (0.0-0.7); #Monocytes 0.6 thou/uL (0.11-0.59); %Basophils 0.5 % (0.0-1.0); %Eosinophils 1.9 % (0.0-10.0); %Monocytes 6.4 % (0.0-10.0); %Neutrophils 71.6 % (42.0-75.0); Hematocrit 48.1 % (36.0-47.0); Hemoglobin 15.2 g/dL (12.0-16.0); Mean Corpuscular HGB CONC 31.6 g/dL (32.0-36.0); Mean Corpuscular Hemoglobin 29.6 pg (27.0-31.0); Mean Corpuscular Volume 93.6 fl (78.0-98.0); Mean Platelet Volume 8.9 fL (7.4-10.4); Platelet Count 379 10x3/uL (130-400); RBC Distribution Width 13.4 % (11.5-14.5); Red Blood Cell (RBC) Count 5.14 mill/uL (4.20-5.40); White Blood Cell (WBC) Count 9.8 10x3/uL (4.8-10.8)
[2023-04-30 15:00] LABS: ALT (SGPT) 18 U/L (8-55); AST (SGOT) 20 U/L (5-34); Albumin 4.4 g/dL (3.4-4.8); Alkaline Phosphatase 110 U/L (40-110); Anion Gap 17 mmol/L (10-20); BUN (Urea Nitrogen) 13 mg/dL (9.8-20.1); Bilirubin, Total 0.4 mg/dL (0.2-1.2); Calc. Creatinine Clearance 0 mL/min (70-130); Calcium 9.2 mg/dL (7.8-10.44); Carbon Dioxide 27 mmol/L (23-31); Chloride 96 mmol/L (98-107); Estimated GFR 52; Globulin 3.6 g/dL (2.4-3.5); Glucose 117 mg/dL (80-115); Lipase Less than 4 U/L (8-78); Potassium 3.9 mmol/L (3.5-5.1); Sodium 136 mmol/L (136-145)
[2023-04-30 15:48] LABS: Bilirubin Negative (Negative); Blood, Urine Negative (Negative); CAUTI Indications for Culture Pelvic or flank pain; Clarity Clear (Clear); Glucose, Urine (Dipstick) Normal (Negative); Ketone, Urine Negative (Negative); Leukocyte 75 Leu/uL (Negative); Nitrite Negative (Negative); Protein, Urine (Dipstick) Negative (Neg-Trace); RBC/HPF 0-3 HPF (0-3); Specific Gravity, Urine 1.013 (1.002-1.036); Squamous Epithelial 0-3 HPF (0-3); WBC/HPF 0-3 HPF (0-3); pH, Urine 6.5 (5.0-9.0)
[2023-04-30 15:49] LABS: Bacteria/HPF 1+ HPF (None Seen)
[2023-04-30 15:50] LABS: Urine Culture Reflex No No
[2023-04-30] MEDS ORDERED: Ondansetron PF 4 MG/2 ML Vial ONE (17:16)
== END 2023-04-30 18:49 | disposition home or self-care (01) ==
LOC: ERS 13:24
DX: R10.9 Unspecified abdominal pain (principal); R11.0 Nausea; N39.0 Urinary tract infection, site not specified; K63.89 Other specified diseases of intestine; E78.00 Pure hypercholesterolemia, unspecified; I10 Essential (primary) hypertension; F17.210 Nicotine dependence, cigarettes, uncomplicated; Z79.899 Other long term (current) drug therapy
CPT/HCPCS: 36415; 74177; 80053; 81001; 83690; 85025; 96361; 96374; J2405; Q9967